=== PATIENT | male | born 1930 | race Caucasian/White ===

== ENCOUNTER 2017-11-01 15:06 | Inpatient (IN) | payer MEDICARE, OTHER ==
[2017-11-01] MEDS ORDERED: NORMAL SALINE 1000 ML 1,000 ML IV ONE (16:36)
[2017-11-01 16:47] LABS: ABSOLUTE LYMPHOCYTES (AUTO) 0.7 10^3/uL (0.5-4.7); ABSOLUTE MONOCYTES (AUTO) 0.9 10^3/uL (0.1-1.4); ABSOLUTE NEUT (AUTO) 8.3 10^3/uL (1.7-8.2); BASOPHILS % (AUTO) 0.1 % (0-2); HEMATOCRIT 42.3 % (37.9-51.0); HEMOGLOBIN 14.3 g/dL (13.5-17.0); LYMPHOCYTES % (AUTO) 7.1 % (13-45); MEAN CORPUSCULAR HEMOGLOBIN 32.6 pg (27.0-33.4); MEAN CORPUSCULAR HGB CONC 33.9 g/dL (32.0-36.0); MEAN CORPUSCULAR VOLUME 96 fl (80-97); MONOCYTES % (AUTO) 8.7 % (3-13); PLATELET COUNT 207 10^3/uL (150-450); RED BLOOD COUNT 4.39 10^6/uL (4.35-5.55); RED CELL DISTRIBUTION WIDTH 13.5 % (11.5-14.0); SEGMENTED NEUTROPHILS % (AUTO) 84.1 % (42-78); TOTAL CELLS COUNTED % (AUTO) 100 %; WHITE BLOOD COUNT 9.9 10^3/uL (4.0-10.5)
[2017-11-01 16:56] LABS: ALANINE AMINOTRANSFERASE 55 U/L (21-72); ALBUMIN 3.8 g/dL (3.5-5.0); ALKALINE PHOSPHATASE 49 U/L (38-126); ANION GAP 14 (5-19); ASPARTATE AMINO TRANSFERASE 124 U/L (17-59); BILIRUBIN,DIRECT 0.6 mg/dL (0.0-0.4); BILIRUBIN,TOTAL 2.6 mg/dL (0.2-1.3); BLOOD UREA NITROGEN 46 mg/dL (7-20); CALCIUM 9.4 mg/dL (8.4-10.2); CARBON DIOXIDE 27 mmol/L (22-30); CHLORIDE 106 mmol/L (98-107); GLUCOSE 135 mg/dL (75-110); POTASSIUM 4.3 mmol/L (3.6-5.0); SODIUM 147.3 mmol/L (137-145); TOTAL PROTEIN 6.5 g/dL (6.3-8.2)
--- NOTE | 2017-11-01 17:02 | RADIOLOGY REPORT (SQ) ---
EXAM DESCRIPTION: CHEST SINGLE VIEW COMPLETED DATE/TIME: 11/01/2017 4:54 pm REASON FOR STUDY: fall, can't stand, weakness, crackles in lungs COMPARISON: 04/25/2010 EXAM PARAMETERS: NUMBER OF VIEWS: One view. TECHNIQUE: Single frontal radiographic view of the chest acquired. RADIATION DOSE: NA LIMITATIONS: None. FINDINGS: LUNGS AND PLEURA: Parenchymal opacity at the right lung base. Left lung clear. MEDIASTINUM AND HILAR STRUCTURES: No masses. Contour normal. HEART AND VASCULAR STRUCTURES: Heart normal in size. Normal vasculature. BONES: No acute findings. HARDWARE: None in the chest. OTHER: No other significant finding. IMPRESSION: Right basilar pneumonia. TECHNICAL DOCUMENTATION: JOB ID: [id number] [employer]- All Rights Reserved Reading location - IP/workstation name: [email or web address]
[2017-11-01 17:08] LABS: CREATINE KINASE MB 20.9 ng/mL (<4.55)
[2017-11-01 17:09] LABS: TROPONIN I 0.06 ng/mL
--- NOTE | 2017-11-01 17:14 | RADIOLOGY REPORT (SQ) ---
EXAM DESCRIPTION: CT HEAD WITHOUT COMPLETED DATE/TIME: 11/01/2017 5:01 pm REASON FOR STUDY: fall, can;t walk COMPARISON: MR head 04/26/2010 CT head 04/25/2010 TECHNIQUE: Axial images acquired through the brain without intravenous contrast. Images reviewed wi th bone, brain and subdural windows. Additional sagittal and coronal reconstructions were generated. Images stored on PACS. All CT scanners at this facility use dose modulation, iterative reconstruction, and/or weight based d osing when appropriate to reduce radiation dose to as low as reasonably achievable (ALARA). [facility]: Dose Right [facility]: CareDose [facility]: Dose Right [facility]: Teradose 4D [facility]: Mixpo RADIATION DOSE: CT Rad equipment meets quality standard of care and radiation dose reduction techniq ues were employed. CTDIvol: 53.2 mGy. DLP: 991 mGy-cm. mGy. LIMITATIONS: None. FINDINGS: VENTRICLES: Normal size and contour. CEREBRUM: Cortical atrophy. No masses. No hemorrhage. No midline shift. No evidence for acute inf arction. Areas of low density in the white matter most likely chronic small vessel ischemic changes. CEREBELLUM: No masses. No hemorrhage. No alteration of density. No evidence for acute infarction. EXTRAAXIAL SPACES: No fluid collections. No masses. ORBITS AND GLOBE: No intra- or extraconal masses. Normal contour of globe without masses. CALVARIUM: No fracture. PARANASAL SINUSES: No fluid or mucosal thickening. SOFT TISSUES: Dense vertebral basilar atherosclerosis. OTHER: No other significant finding. IMPRESSION: CHRONIC MICROVASCULAR ISCHEMIA. NO ACUTE IMAGING FINDINGS IN THE BRAIN. DENSE VERTEBRAL BASILAR ATHEROSCLEROSIS. EVIDENCE OF ACUTE STROKE: NO. COMMENT: Quality ID # [id number]: Final reports with documentation of one or more dose reduction techniques (e.g., Automated exposure control, adjustment of the mA and/or kV according to patient size, use of iterative reconstruction technique) TECHNICAL DOCUMENTATION: JOB ID: [id number] [employer]- All Rights Reserved Reading location - IP/workstation name: [email or web address]
[2017-11-01 17:15] LABS: CREATINE KINASE 5370 U/L (55-170)
--- NOTE | 2017-11-01 17:55 | ER Document Report ---
ED General - General Chief Complaint: Fall Stated Complaint: FALL Time Seen by Provider: 11/01/17 16:10 Notes: 87-year-old male found down at home, brought in by EMS. Patient apparently fell to the ground on Monday, states he thinks he may have passed out and then has been too weak to get up ever since then. Does not have any focal weakness, states that his entire body is just difficult to move. Complains of pain on his left side where he has been laying but otherwise has no complaints of pain. Denies chest pain, shortness of breath, nausea, vomiting, diarrhea. States he has been urinating frequently. Patient lives by himself, goes for tricycle rides and usually takes care of all his activities daily of daily living himself. Family has noticed that he has been getting weaker and weaker over the past several months and has been having more frequent falls. Patient does usually have somebody who comes and checks on him every day however she apparently had diarrhea over the past 48 hours so has not stopped by the house. When family stopped by today they found him on the ground. TRAVEL OUTSIDE OF THE [place] IN LAST 30 DAYS: No - Related Data Allergies/Adverse Reactions: No Known Allergies Allergy (Verified 11/01/17 15:34) Past Medical History - General Information source: Patient, Relative - Social History Smoking Status: Former Smoker Chew tobacco use (# tins/day): No Frequency of alcohol use: None Drug Abuse: None Lives with: Alone Family History: Reviewed & Not Pertinent Patient has suicidal ideation: No Patient has homicidal ideation: No - Past Medical History Cardiac Medical History: Reports: Hx Hypercholesterolemia Renal/ Medical History: Denies: Hx Peritoneal Dialysis Past Surgical History: Reports: Hx Abdominal Surgery, Hx Oral Surgery, Hx Vascular Surgery Review of Systems - Review of Systems Constitutional: See HPI, Weakness EENT: No symptoms reported Cardiovascular: See HPI, Syncope Respiratory: No symptoms reported Gastrointestinal: No symptoms reported Musculoskeletal: See HPI - Generalized weakness, no focal weakness. Skin: See HPI -: Yes All other systems reviewed and negative Physical Exam - Vital signs Vitals: Resp BP 14 111/88 H 11/01/17 09:49 11/01/17 09:49 Interpretation: Tachycardic, Hypoxic - Notes Notes: GENERAL: Awake, appears tired but does respond relatively promptly. No acute distress. Cachectic HEAD: Normocephalic, atraumatic EYES: Pupils equal, round and reactive to light, extraocular movements intact. ENT: Oral mucosa moist, tongue midline. NECK: Full range of motion, supple, trachea midline. LUNGS: Hypoxic, crackles at the bilateral lung bases, no wheezes. HEART: Regular rate and rhythm, no murmurs, gallops, rubs. ABDOMEN: Soft, nontender, nondistended, bowel sounds present in all 4 quadrants. EXTREMITIES: Moves all 4 extremities spontaneously, no edema, radial and dorsalis pedis pulses 2/4 bilaterally. No cyanosis. NEUROLOGICAL: Alert and oriented x3, normal speech, no facial droop, biceps and patellar DTRs 2+ bilaterally. PSYCH: Normal mood, normal affect. SKIN: Warm and dry, skin breakdown is noted medially on the right knee, laterally on the left knee, along the left greater trochanter, left arm and elbow, some skin breakdown is noted along the bony prominences of the back as well. This is all consistent with immobility for the past 48 hours. Course - Re-evaluation Re-evalutation: 11/01/17 17:55 Patient appears much better than expected after laying on the floor in his house for 48 hours. CBC grossly unremarkable, CMP shows a bumped creatinine at 46, GFR is normal at 0.87, GFR creatinine is normal at 0.87, GFR surprisingly normal at greater than 60, lactic acid normal, total and direct bilirubin are both bumped at 2.6 and 0.6 respectively, CK elevated at 5370, CK-MB elevated at 20.9, troponin indeterminate 0.060. Chest x-ray shows right basilar pneumonia, head CT shows chronic microvascular ischemia, no other acute findings in the brain. Urinalysis is pending however the urine was quite dark. Patient is currently being treated with fluids for rhabdomyolysis as well as with Rocephin and azithromycin for his pneumonia. Patient is being hydrated. Patient was discussed with Dr. Vo from the hospitalist service and will be admitted. - Vital Signs Vital signs: Temp Pulse Resp BP Pulse Ox 97.8 F 95 20 116/81 89 L 11/01/17 15:13 11/01/17 15:13 11/01/17 15:13 11/01/17 16:25 11/01/17 17:30 - Laboratory Result Diagrams: 11/01/17 16:05 11/01/17 16:05 Laboratory results interpreted by me: 11/01/17 11/01/17 11/01/17 16:05 16:05 16:05 Seg Neutrophils % 84.1 H Lymphocytes % 7.1 L Absolute Neutrophils 8.3 H Sodium 147.3 H BUN 46 H Glucose 135 H Total Bilirubin 2.6 H Direct Bilirubin 0.6 H AST 124 H Creatine Kinase 5370 H CK-MB (CK-2) 20.90 H - EKG Interpretation by Me Additional EKG results interpreted by me: 11/01/17 17:55 EKG shows sinus tachycardia at a rate of 112, first-degree AV block, left anterior hemiblock, ST segment depressions in V3, no ST segment elevations per my interpretation. Discharge - Discharge Clinical Impression: Fall at home Qualifiers: Encounter type: initial encounter Qualified Code(s): W19.XXXA - Unspecified fall, initial encounter; Y92.009 - Unspecified place in unspecified non- institutional (private) residence as the place of occurrence of the external cause; Y92.009 - Unspecified place in unspecified non-institutional (private) residence as the place of occurrence of the external cause Rhabdomyolysis Qualifiers: Rhabdomyolysis type: non-traumatic Qualified Code(s): M62.82 - Rhabdomyolysis Right lower lobe pneumonia Qualifiers: Pneumonia type: due to unspecified organism Qualified Code(s): J18.1 - Lobar pneumonia, unspecified organism Condition: Fair Disposition: ADMITTED INPATIENT Admitting Provider: [facility] Unit Admitted: Telemetry Referrals: KEVIN LE MD [Primary Care Provider] - Follow up as needed
[2017-11-01 17:59] LABS: APPEARANCE,URINE SLIGHTLY-CLOUDY; BILIRUBIN,URINE NEGATIVE (NEGATIVE); GLUCOSE, URINE NEGATIVE (NEGATIVE); KETONES,URINE TRACE mg/dL (NEGATIVE); LEUKOCYTE ESTERASE,URINE NEGATIVE (NEGATIVE); NITRITE,URINE NEGATIVE (NEGATIVE); PROTEIN,URINE 100 mg/dL (NEGATIVE); URINE SPECIFIC GRAVITY 1.027
[2017-11-01] MEDS ORDERED: AZITHROMYCIN 500 MG in DEXTROSE 5%-WATER 250 ML IV SCH (18:00)
[2017-11-01 18:06] LABS: COLOR,URINE YELLOW
--- NOTE | 2017-11-01 18:27 | PDOC H&P ---
History of Present Illness Admission Date/PCP: KEVIN LE MD History of Present Illness: JAIME JOHNSTON is a 87 year old male who was brought into the hospital after being found down on the floor for an extended period of time. Apparently he lives by himself and does most of his own ADLs, but his family has noticed that over the last few months that he has been getting progressively weaker, and so they made an arrangement to have somebody come by and check on him and help him out during part of the day. Apparently that person has been sick for the last couple days and has not been able to come by., From the family came by to check on the patient today and found him in the floor. The last time he was known to have been in his usual state of health was about 3 days ago, so he could have fallen anytime between then and the time he was found, but he had apparently been down for some time because he was noted to have some pressure abrasions on his left side. Apparently he was too weak to get up from the floor and was unable to get to a telephone call for help. Apparently he is usually in pretty good health because he does not have any home medications listed. He said he does not have any medical problems. He denies any fevers or chills, chest pain or shortness of breath, nausea vomiting or diarrhea. He has a little bit of a tremor in his right hand which he says is chronic. He does not remember any of the details of when he fell. He just said that the next thing he knew he was in the floor and he could not get to a telephone. Past Medical History Cardiac Medical History: Reports: Hyperlipidema Past Surgical History Past Surgical History: Reports: Vascular Surgery Social History Information Source: Patient Lives with: Alone Smoking Status: Former Smoker Frequency of Alcohol Use: Rare Hx Recreational Drug Use: No Drugs: None Hx Prescription Drug Abuse: No Family History Family History: Reviewed & Not Pertinent Parental Family History Reviewed: Yes - Noncontributory Children Family History Reviewed: Yes - Noncontributory Sibling(s) Family History Reviewed.: Yes - Noncontributory Medication/Allergy Allergies/Adverse Reactions: No Known Allergies Allergy (Verified 11/01/17 15:34) Review of Systems All systems: reviewed and no additional remarkable complaints except as stated - 10 point review of systems was conducted with the patient was negative except as noted above in HPI Physical Exam Vital Signs: Temp Pulse Resp BP Pulse Ox 97.6 F 95 25 H 116/81 89 L 11/01/17 17:58 11/01/17 15:13 11/01/17 17:12 11/01/17 16:25 11/01/17 17:30 Intake & Output 10/31/17 11/01/17 11/02/17 06:59 06:59 06:59 Intake Total 1500 Output Total 200 Balance 1300 Weight 71.7 kg General appearance: PRESENT: no acute distress, cooperative, disheveled, thin Head exam: PRESENT: atraumatic, normocephalic Eye exam: PRESENT: conjunctiva pink, EOMI, PERRLA. ABSENT: periorbital swelling , scleral icterus Ear exam: PRESENT: normal external ear exam Mouth exam: PRESENT: dry mucosa, neck supple, tongue midline Throat exam: ABSENT: post pharyngeal erythema, tonsillar erythema, tonsillar exudate, tonsillogmegaly Neck exam: ABSENT: carotid bruit, JVD, lymphadenopathy, tenderness, thyromegaly Respiratory exam: PRESENT: clear to auscultation hua. ABSENT: rales, rhonchi, wheezes Cardiovascular exam: PRESENT: RRR. ABSENT: diastolic murmur, rubs, systolic murmur Pulses: PRESENT: normal carotid pulses, normal radial pulses, normal femoral pulses Vascular exam: PRESENT: normal capillary refill GI/Abdominal exam: PRESENT: normal bowel sounds, soft. ABSENT: distended, guarding, mass, organolmegaly, rebound, tenderness Rectal exam: PRESENT: deferred Extremities exam: PRESENT: full ROM. ABSENT: clubbing, pedal edema Musculoskeletal exam: PRESENT: normal inspection, other - He is very thin and his rib bones are easily visible on his anterior chest. ABSENT: deformity Neurological exam: PRESENT: alert, awake, oriented to person, oriented to place , oriented to time, oriented to situation, CN II-XII grossly intact Psychiatric exam: PRESENT: appropriate affect, normal mood Skin exam: PRESENT: abrasion - He has worn a pressure point on the lateral aspect of his left knee as well as on his left shoulder, dry - He has a very dry and scaly skin on his lower extremities below the knees bilaterally, other - He has diffuse ecchymoses on his upper and lower extremities Results Laboratory Results: 11/01/17 16:05 11/01/17 16:05 11/01/17 11/01/17 11/01/17 16:05 16:05 16:05 WBC 9.9 RBC 4.39 Hgb 14.3 Hct 42.3 MCV 96 MCH 32.6 MCHC 33.9 RDW 13.5 Plt Count 207 Seg Neutrophils % 84.1 H Lymphocytes % 7.1 L Monocytes % 8.7 Eosinophils % 0.0 Basophils % 0.1 Absolute Neutrophils 8.3 H Absolute Lymphocytes 0.7 Absolute Monocytes 0.9 Absolute Eosinophils 0.0 Absolute Basophils 0.0 Sodium 147.3 H Potassium 4.3 Chloride 106 Carbon Dioxide 27 Anion Gap 14 BUN 46 H Creatinine 0.87 Est GFR ( Amer) > 60 Est GFR (Non-Af Amer) > 60 Glucose 135 H Lactic Acid 1.4 Calcium 9.4 Total Bilirubin 2.6 H AST 124 H ALT 55 Alkaline Phosphatase 49 Total Protein 6.5 Albumin 3.8 Urine Color Urine Appearance Urine pH Ur Specific [place] Urine Protein Urine Glucose (UA) Urine Ketones Urine Blood Urine Nitrite Ur Leukocyte Esterase Urine WBC (Auto) Urine RBC (Auto) 11/01/17 17:10 WBC RBC Hgb Hct MCV MCH MCHC RDW Plt Count Seg Neutrophils % Lymphocytes % Monocytes % Eosinophils % Basophils % Absolute Neutrophils Absolute Lymphocytes Absolute Monocytes Absolute Eosinophils Absolute Basophils Sodium Potassium Chloride Carbon Dioxide Anion Gap BUN Creatinine Est GFR ( Amer) Est GFR (Non-Af Amer) Glucose Lactic Acid Calcium Total Bilirubin AST ALT Alkaline Phosphatase Total Protein Albumin Urine Color YELLOW Urine Appearance SLIGHTLY-CLOUDY Urine pH 5.0 Ur Specific [place] 1.027 Urine Protein 100 H Urine Glucose (UA) NEGATIVE Urine Ketones TRACE H Urine Blood LARGE H Urine Nitrite NEGATIVE Ur Leukocyte Esterase NEGATIVE Urine WBC (Auto) 3 Urine RBC (Auto) 14 11/01/17 11/01/17 16:05 16:05 Creatine Kinase 5370 H CK-MB (CK-2) 20.90 H Troponin I 0.060 Impressions: Chest X-Ray 11/01/17 16:36 IMPRESSION: Right basilar pneumonia. Head CT 11/01/17 16:37 IMPRESSION: CHRONIC MICROVASCULAR ISCHEMIA. NO ACUTE IMAGING FINDINGS IN THE BRAIN. DENSE VERTEBRAL BASILAR ATHEROSCLEROSIS. EVIDENCE OF ACUTE STROKE: NO. Assessment & Plan - Diagnosis (1) Rhabdomyolysis Qualifiers: Rhabdomyolysis type: non-traumatic Qualified Code(s): M62.82 - Rhabdomyolysis Is this a current diagnosis for this admission?: Yes Plan: We will give him some IV fluids. We will keep an eye on his renal function, which is currently very good. Will repeat the trend on his CPK to make sure his enzymes are trending down. (2) Fall at home Qualifiers: Encounter type: initial encounter Qualified Code(s): W19.XXXA - Unspecified fall, initial encounter; Y92.009 - Unspecified place in unspecified non-institutional (private) residence as the place of occurrence of the external cause; Y92.009 - Unspecified place in unspecified non-institutional ( private) residence as the place of occurrence of the external cause Is this a current diagnosis for this admission?: Yes Plan: Once we get him tuned up a little bit, will have physical therapy come to evaluate him. (3) Right lower lobe pneumonia Qualifiers: Pneumonia type: due to unspecified organism Qualified Code(s): J18.1 - Lobar pneumonia, unspecified organism Is this a current diagnosis for this admission?: Yes Plan: I suspect this is due to aspiration. We do not know all the details of his downtime, and he does not remember any of the details of his fall. We will cover him with Zosyn empirically. He does not show any signs of any infection externally, but blood cultures have been drawn regardless. - Time Time Spent: 50 to 70 Minutes Medications reviewed and adjusted accordingly: Yes
[2017-11-01] MEDS: RINGERS SOLUTION,LACTATED 1,000 ML IV PRN (18:34)
[2017-11-01] MEDS: CEFTRIAXONE 1 GM/D5W RTU 1 GM/50 ML RTUPB IV SCH ×2 (18:38→19:36)
[2017-11-01] MEDS ORDERED: AZITHROMYCIN 500 MG in DEXTROSE 5%-WATER 250 ML IV PRN (19:30)
[2017-11-01] MEDS ORDERED: FLUTICASONE NASAL SPRAY 50 MCG/SPRY 120 SPRAY/16 GM NASL ONE (20:52)
[2017-11-01] MEDS ORDERED: GLUCAGON,HUMAN RECOMB 1 MG INJ SUBCUT PRN (21:02)
[2017-11-01] MEDS ORDERED: DEXTROSE 40% GEL 15 GM TUBE PO PRN ×2 (21:02)
[2017-11-01] MEDS ORDERED: DEXTROSE 50%-WATER 25 GM/50 ML DISP.SYRIN IV PRN ×2 (21:02)
[2017-11-01] MEDS: PIPERACILLIN SODIUM/TAZOBACTAM 3.375 GM in NORMAL SALINE 100 ML IV SCH (22:52)
[2017-11-02] MEDS: ACETAMINOPHEN 325 MG TABLET PO PRN (00:25)
[2017-11-02 05:16] LABS: HEMATOCRIT 38.5 % (37.9-51.0); HEMOGLOBIN 13.1 g/dL (13.5-17.0); MEAN CORPUSCULAR HEMOGLOBIN 32.8 pg (27.0-33.4); MEAN CORPUSCULAR VOLUME 96 fl (80-97); PLATELET COUNT 168 10^3/uL (150-450); RED BLOOD COUNT 3.99 10^6/uL (4.35-5.55)
[2017-11-02 05:37] LABS: ANION GAP 11 (5-19); BLOOD UREA NITROGEN 47 mg/dL (7-20); CALCIUM 8.7 mg/dL (8.4-10.2); CARBON DIOXIDE 28 mmol/L (22-30); CHLORIDE 109 mmol/L (98-107); GLUCOSE 143 mg/dL (75-110); POTASSIUM 4.2 mmol/L (3.6-5.0); SODIUM 147.9 mmol/L (137-145)
[2017-11-02 05:44] LABS: CREATINE KINASE 2865 U/L (55-170)
[2017-11-02] MEDS: PIPERACILLIN SODIUM/TAZOBACTAM 3.375 GM in NORMAL SALINE 100 ML IV SCH ×3 (06:12→18:24)
[2017-11-02] MEDS: RINGERS SOLUTION,LACTATED 1,000 ML IV PRN ×2 (06:12→18:25)
--- NOTE | 2017-11-02 07:41 | EKG REPORT ---
SEVERITY:- ABNORMAL ECG - SINUS TACHYCARDIA FIRST DEGREE AV BLOCK RAA, CONSIDER BIATRIAL ABNORMALITIES RBBB AND LAFB LEFT VENTRICULAR HYPERTROPHY : Confirmed by: Estella Graham MD 02-Nov-2017 07:39:51
--- NOTE | 2017-11-02 09:03 | RADIOLOGY REPORT (SQ) ---
EXAM DESCRIPTION: CHEST SINGLE VIEW COMPLETED DATE/TIME: 11/02/2017 8:40 am REASON FOR STUDY: aspiration, hypoxemia COMPARISON: 06/11/2009, 04/25/2010, 11/01/2017 chest films EXAM PARAMETERS: NUMBER OF VIEWS: One view. TECHNIQUE: Single frontal radiographic view of the chest acquired. RADIATION DOSE: NA LIMITATIONS: None. FINDINGS: LUNGS AND PLEURA: Patchy airspace disease is present in the right medial lung base worriso me for pneumonia. This similar compared to 11/01/2017. Left lung clear. No pleural effusions. No pneumothorax. MEDIASTINUM AND HILAR STRUCTURES: No masses. Contour normal. HEART AND VASCULAR STRUCTURES: Heart normal in size. Normal vasculature. BONES: No acute findings. HARDWARE: None in the chest. OTHER: No other significant finding. IMPRESSION: Patchy right lower lobe airspace disease unchanged from 11/01/2017 TECHNICAL DOCUMENTATION: JOB ID: [id number] [employer]- All Rights Reserved Reading location - IP/workstation name: [email or web address]
[2017-11-02] MEDS: ENOXAPARIN SODIUM INJ 40 MG/0.4 ML DISP.SYRIN SUBCUT SCH (10:24)
[2017-11-02] MEDS: AZITHROMYCIN 500 MG in DEXTROSE 5%-WATER 250 ML IV SCH (11:10)
--- NOTE | 2017-11-02 17:43 | PDOC PROGRESS REPORT ---
Subjective Progress Note for:: 11/02/17 Subjective:: No adverse events overnight. He apparently had some trouble with thin liquids yesterday, and this morning he had some trouble with thin liquids during his swallow evaluation. He was making gurgling breath sounds whenever I saw him and I got him to take a couple of big deep breaths with a strong cough and he was able to clear up copious amounts of secretions and his breath sounds improved. Later on while I was talking to him he began make the same gurgling breath sounds we got him to cough again to clear up some more bloody secretions. He has been afebrile. He was able to walk with walker for short distance, but he needed assistance with his transfers. Reason For Visit: RHABDOMYOLYSIS,DEHYDRATION,FALLWITH PROLONGED DOWN Physical Exam Vital Signs: Temp Pulse Resp BP Pulse Ox 98.0 F 88 20 113/73 95 11/02/17 15:42 11/02/17 15:42 11/02/17 15:42 11/02/17 15:42 11/02/17 15:42 Intake & Output 11/01/17 11/02/17 11/03/17 06:59 06:59 06:59 Intake Total 900 236 Output Total 350 Balance 550 236 Weight 76.7 kg General appearance: PRESENT: no acute distress, thin, well-developed Respiratory exam: PRESENT: rhonchi - Centrally, unlabored. ABSENT: rales, tachypnea, wheezes Cardiovascular exam: PRESENT: RRR. ABSENT: diastolic murmur, rubs, systolic murmur Vascular exam: PRESENT: normal capillary refill GI/Abdominal exam: PRESENT: normal bowel sounds, soft. ABSENT: distended, guarding, mass, organolmegaly, rebound, tenderness Extremities exam: ABSENT: clubbing, pedal edema Musculoskeletal exam: PRESENT: normal inspection. ABSENT: deformity Neurological exam: PRESENT: alert, oriented to person, oriented to place, oriented to time Skin exam: PRESENT: dry, warm, other - Had ecchymoses on his upper and lower extremities with a couple of excoriated places, one on his left lateral knee and one on his left shoulder Results Laboratory Results: 11/02/17 04:09 11/02/17 04:09 11/02/17 11/02/17 04:09 04:09 WBC 8.0 RBC 3.99 L Hgb 13.1 L Hct 38.5 MCV 96 MCH 32.8 MCHC 34.0 RDW 14.0 Plt Count 168 Sodium 147.9 H Potassium 4.2 Chloride 109 H Carbon Dioxide 28 Anion Gap 11 BUN 47 H Creatinine 1.05 Est GFR ( Amer) > 60 Est GFR (Non-Af Amer) > 60 Glucose 143 H Calcium 8.7 11/02/17 04:09 Creatine Kinase 2865 H Impressions: Head CT 11/01/17 16:37 IMPRESSION: CHRONIC MICROVASCULAR ISCHEMIA. NO ACUTE IMAGING FINDINGS IN THE BRAIN. DENSE VERTEBRAL BASILAR ATHEROSCLEROSIS. EVIDENCE OF ACUTE STROKE: NO. Chest X-Ray 11/02/17 00:00 IMPRESSION: Patchy right lower lobe airspace disease unchanged from 11/01/2017 Assessment & Plan - Diagnosis (1) Rhabdomyolysis Qualifiers: Rhabdomyolysis type: non-traumatic Qualified Code(s): M62.82 - Rhabdomyolysis Is this a current diagnosis for this admission?: Yes Plan: Improving with IV fluids (2) Fall at home Qualifiers: Encounter type: initial encounter Qualified Code(s): W19.XXXA - Unspecified fall, initial encounter; Y92.009 - Unspecified place in unspecified non-institutional (private) residence as the place of occurrence of the external cause; Y92.009 - Unspecified place in unspecified non-institutional ( private) residence as the place of occurrence of the external cause Is this a current diagnosis for this admission?: Yes Plan: I got to speak with his family, they are in agreement that he would probably benefit from a stay in a nursing home facility, if not long-term placement. (3) Right lower lobe pneumonia Qualifiers: Pneumonia type: due to unspecified organism Qualified Code(s): J18.1 - Lobar pneumonia, unspecified organism Is this a current diagnosis for this admission?: Yes Plan: Likely due to aspiration. He is on Zosyn. A modified barium swallow study is scheduled for tomorrow. - Time Time Spent with patient: 25-34 minutes Medications reviewed and adjusted accordingly: Yes Anticipated discharge: SNF
[2017-11-03] MEDS: PIPERACILLIN SODIUM/TAZOBACTAM 3.375 GM in NORMAL SALINE 100 ML IV SCH ×5 (00:37→23:19)
[2017-11-03 06:33] LABS: HEMATOCRIT 34.4 % (37.9-51.0); HEMOGLOBIN 11.6 g/dL (13.5-17.0); MEAN CORPUSCULAR HGB CONC 33.8 g/dL (32.0-36.0); MEAN CORPUSCULAR VOLUME 97 fl (80-97); PLATELET COUNT 162 10^3/uL (150-450); RED BLOOD COUNT 3.53 10^6/uL (4.35-5.55); WHITE BLOOD COUNT 9.8 10^3/uL (4.0-10.5)
[2017-11-03 06:48] LABS: ANION GAP 9 (5-19); BLOOD UREA NITROGEN 37 mg/dL (7-20); CALCIUM 8.8 mg/dL (8.4-10.2); CARBON DIOXIDE 29 mmol/L (22-30); CHLORIDE 109 mmol/L (98-107); CREATINE KINASE 980 U/L (55-170); GLUCOSE 109 mg/dL (75-110)
[2017-11-03 06:49] LABS: POTASSIUM 3.8 mmol/L (3.6-5.0)
--- NOTE | 2017-11-03 08:41 | ST Modified Barium Swallow ---
Recommendation - Recommendations Recommendations: Recommend NPO. Consider alternate means of nutrition. Medical Diagnoses - Medical Diagnoses Medical Diagnosis Description & ICD-10 Code(s): Rhabdomyolysis, dysphagia ( R13.10) Other Medical Diagnoses/Co-Morbidities: hyperlipidemia ST Modified Barium Swallow - General Date: 11/03/17 Risks/Precautions: Aspiration Date of Onset: 11/01/17 Reason for Referral: Signs of aspiration - History History obtained from: Patient -: Medical Allergies: No known allergies - Functional Status Prior Functional Status: INDEPENDENT: ADL - at home with assist, community mobility, communication, feeding, leisure/play, other - Subjective Patient/caregiver goal(s): safe swallow, r/o aspiration Cognitive-Linguistic Function: Functional - did not consistently follow 1-step directions Speech Intelligibility: Reduced intelligibility - reduced intensity and wet vocal quality, but largely intelligible Current Nutritional Means: PO Current PO diet: Mechanical- ground, Thickened liquids - nectar thick liquids Current symptoms: Coughing, Wet/gurgly voice, Pneumonia Pain: Patient reports, 1/5 - mild headache - Objective Assessment: Left Lateral - Food Trials Used Food trials used: Thin liquids, [place] thick liquids, Pureed The patient: Was Able to Self Feed - Oral-Motor Skills Dentition: Partial Laryngeal Function: Weak Cough - Assessment Oral prep: Adeq, for consist. tested Labial closure: Adequate Leakage: None Mastication: no chewing observed Lingual Movement: Normal Oral stage: Age appropriate - Pharyngeal Stage Initiation of Pharyngeal Stage Reflex: Delayed Decreased laryngeal elevation: Yes Reduced Velopharyngeal Closure: no Reduced pressure generation: Yes reduced tongue-based retraction: Yes Pre-swallow pooling in valleculae: Mild Pre-Swallow pooling in pyriforms: Mild Reduced Thyro-Hyoid approximation: Yes Reduced epiglottic excursion: Yes Multiple Swallows with: Ineffective Clearance Post-swallow residulas vallecular: Significant Post-Swallow residuals in pyriforms: Significant Post-Swallow Residuals: throughout pharynx Reduced Cricopharyngeal opening: Yes - Fall Risk Assessment Medications/Conditions that increase fall risks include: Antidepressants, sedatives, anti-arrhythmic, diuretic, benzodiazipenes, neuroleptics. BP regulation problems, cardiac problems, balance or gait deficits, neurological problems. Is patient considered at risk for falls: yes Fall Risk Actions Taken: No action needed - Behavioral Observations During evaluation process patient: was pleasant, was cooperative, able to answer questions, provided medical history - Treatment / Educational Needs: Treatment/Education Needs: Treatment consisted of patient education on the role of the Speech Pathologist. Patient's plan of care and golas were communicated as well as scheduling and attendance policies. Recommendations for initial home program were shared. Patient demonstrated understanding and verbalized agreement. - Impression/Summary Laryngeal Penetration: Yes Consistency: Thin, Honey, Pudding Tracheal Aspiration: yes, silent - on all consistencies trialed. Required cues to cough, but did not clear bolus from airway., during swallow, after swallow Productive cough: No Effective Clearing: no Patient presents with: Pharyngeal stage dysph., Profound Risk of Aspiration: Severe Risk of nutritional compromise: Severe - Recommend consideration of alternate means of nutrition Risk due to: Silent aspiration of thin liquid, nectar thick liquid, and pudding. - Recommendations NPO: yes Strict aspiration precautions: Yes Pt/Family education and followup with MD: Yes - Called MD and RN to discuss results and recommendation for NPO Dysphagia therapy with GENERAL ASSEMBLER INSTALLER: yes Information, Precautions and Recommendations: Patient (Verbal) - Time Total Time: 15 - Green Chain Worker Goals Retirement Goals: #1 - Patient will drink 4 oz. of thin liquid with no overt signs/symptoms of aspiration. - Short Term Goals Short Term Goals: #1 - Patient will accept ice chip trials without overt signs/ symptoms of aspiration in 4/5 trials. - Plan of Care Patient to follow-up with referring physician: Yes Rehab potential for established goals: [place] a week: 3x/week POC Procedures/Codes: therapeutic trials, pharyngeal exercises, laryngeal exercises, pt/family education, behavioral/dietary mod, MBSS (20328) Strategies to optimize patient understanding include:: ongoing assessment of educational needs, implementation of educational strategies, and re-education. - - -: Thank you for the opportunity to work with this patient and his/her family. Should you have any questions about this patient's plan or progress, I can be reached at [phone]. Charge G Code? - - -: Yes ST F.L. Impairment Category - Rationale Based On Rationale Based On: All - Swallowing Current G8996: CN 100% Impaired Goal G8997: CL 60-79% Impaired
[2017-11-03] MEDS: RINGERS SOLUTION,LACTATED 1,000 ML IV PRN ×2 (10:47→23:20)
[2017-11-03] MEDS ORDERED: KETOROLAC TROMETHAMINE INJ/PF 30 MG/1 ML SDV IV ONE (11:30)
[2017-11-03] MEDS: AZITHROMYCIN 500 MG in DEXTROSE 5%-WATER 250 ML IV SCH (11:42)
[2017-11-03] MEDS: ENOXAPARIN SODIUM INJ 40 MG/0.4 ML DISP.SYRIN SUBCUT SCH (11:44)
--- NOTE | 2017-11-03 11:49 | RADIOLOGY REPORT (SQ) ---
EXAM DESCRIPTION: MICHELLE SWALLOW COMPLETED DATE/TIME: 11/03/2017 8:31 am REASON FOR STUDY: SIGNS OF ASPIRATION rhabdomyolysis, right lower lobe pneumonia, COMPARISON: None. TECHNIQUE: Videofluoroscopic swallowing examination was performed in conjunction with speech patholo gy. Videofluoroscopic imaging was obtained and reviewed and these are the findings: RADIATION DOSE: 1 minutes 12 seconds of fluoroscopy was used. 1 images saved to PACS. LIMITATIONS: None FINDINGS: The patient was brought into the fluoro room and placed upright on a modified barium swall ow chair. The patient was then given multiple consistencies mixed with barium to swallow under live fluoroscopic video guidance. According to the Speech Pathologist there was laryngeal penetration and aspiration with all consistencies. There is aspiration of post swallow residuals from the Piriforms . IMPRESSION: LARYNGEAL PENETRATION AND ASPIRATION OF ALL CONSISTENCIES.PLEASE SEE SPEECH PATHOLOGIST REPORT FOR OTHER FINDINGS AND RECOMMENDATIONS. COMMENT: Quality ID 145: Final reports for procedures using fluoroscopy that document radiation exp osure indices, or exposure time and number of fluorographic images (if radiation exposure indices are not available) TECHNICAL DOCUMENTATION: JOB ID: [id number] [employer]- All Rights Reserved Reading location - IP/workstation name: [email or web address]
--- NOTE | 2017-11-03 14:46 | RADIOLOGY REPORT (SQ) ---
EXAM DESCRIPTION: INTRO/GI TUBE W/FLUORO; INTRO LONG GI TUBE (MILLAB) COMPLETED DATE/TIME: 11/03/2017 2:28 pm REASON FOR STUDY: dysphagia, DOBHOFF INSERTION FOR NUTRITION; DYSPHAGIA, DOBHOFF INSERTION COMPARISON: None. TECHNIQUE: Live fluoroscopic guidance. RADIATION DOSE: 2 minutes 16 seconds of fluoroscopy was used. 1 images saved to PACS. LIMITATIONS: None. FINDINGS: The patient was brought to the fluoroscopy room and placed supine on the fluoroscopy table . A NJ-tube was advanced through the left nostril through the stomach and ending in the 3rd portion o f the duodenum. Approximately 20 mL of non ionic contrast was injected through the catheter to confi rm placement. A fluoroscopic spot film was saved to PACs demonstrating catheter tip within the 3rd po rtion of the duodenum. IMPRESSION: Successful fluoroscopic guided placement of a Dobhoff tube. COMMENT: Quality ID 145: Final reports for procedures using fluoroscopy that document radiation exp osure indices, or exposure time and number of fluorographic images (if radiation exposure indices are not available) TECHNICAL DOCUMENTATION: JOBD ID: [id number] [employer]- All Rights Reserved Reading location - IP/workstation name: [email or web address]
--- NOTE | 2017-11-03 14:46 | RADIOLOGY REPORT (SQ) ---
EXAM DESCRIPTION: INTRO/GI TUBE W/FLUORO; INTRO LONG GI TUBE (MILLAB) COMPLETED DATE/TIME: 11/03/2017 2:28 pm REASON FOR STUDY: dysphagia, DOBHOFF INSERTION FOR NUTRITION; DYSPHAGIA, DOBHOFF INSERTION COMPARISON: None. TECHNIQUE: Live fluoroscopic guidance. RADIATION DOSE: 2 minutes 16 seconds of fluoroscopy was used. 1 images saved to PACS. LIMITATIONS: None. FINDINGS: The patient was brought to the fluoroscopy room and placed supine on the fluoroscopy table . A NJ-tube was advanced through the left nostril through the stomach and ending in the 3rd portion o f the duodenum. Approximately 20 mL of non ionic contrast was injected through the catheter to confi rm placement. A fluoroscopic spot film was saved to PACs demonstrating catheter tip within the 3rd po rtion of the duodenum. IMPRESSION: Successful fluoroscopic guided placement of a Dobhoff tube. COMMENT: Quality ID 145: Final reports for procedures using fluoroscopy that document radiation exp osure indices, or exposure time and number of fluorographic images (if radiation exposure indices are not available) TECHNICAL DOCUMENTATION: JOBD ID: [id number] [employer]- All Rights Reserved Reading location - IP/workstation name: [email or web address]
--- NOTE | 2017-11-03 15:25 | RADIOLOGY REPORT (SQ) ---
EXAM DESCRIPTION: MRI HEAD WITHOUT COMPLETED DATE/TIME: 11/03/2017 2:53 pm REASON FOR STUDY: dysphagia COMPARISON: 04/26/2010 TECHNIQUE: Multiplanar imaging includes non-contrasted T1, T2, FLAIR, and diffusion with ADC map seq uences. Images stored on PACS. LIMITATIONS: None. FINDINGS: ANATOMY: No anomalies. Normal vascular flow voids. Pituitary fossa normal. CSF SPACES: CSF spaces are prominent. CEREBRUM: Cortical atrophy is present. There are areas of increased white matter signal in the periv entricular regions on FLAIR imaging. No evidence of hemorrhage, mass, or extraaxial fluid collection . POSTERIOR FOSSA: No signal alteration. No hemorrhage. No edema, masses or mass effect. Internal heather tory canals, cerebello-pontine angles, mastoids normal. DIFFUSION IMAGING: Negative for acute or sub-acute infarction. ORBITS: No masses. Globes normal. PARANASAL SINUSES: No fluid levels. Mucosa normal. OTHER: No other significant finding. IMPRESSION: Involutional changes of aging with chronic microvascular ischemia and no acute intracran ial imaging findings. EVIDENCE OF ACUTE STROKE: No TECHNICAL DOCUMENTATION: JOB ID: [id number] [employer]- All Rights Reserved Reading location - IP/workstation name: [email or web address]
--- NOTE | 2017-11-03 16:48 | PDOC PROGRESS REPORT ---
Subjective Progress Note for:: 11/03/17 Subjective:: He failed his modified barium swallow study this morning. His breathing feels good. He has been afebrile. He still coughing up some phlegm. Reason For Visit: RHABDOMYOLYSIS,DEHYDRATION,FALLWITH PROLONGED DOWN Physical Exam Vital Signs: Temp Pulse Resp BP Pulse Ox 98.0 F 63 20 140/63 H 100 11/03/17 11:05 11/03/17 11:05 11/03/17 11:05 11/03/17 11:05 11/03/17 16:16 Intake & Output 11/02/17 11/03/17 11/04/17 06:59 06:59 06:59 Intake Total 900 2976 237 Output Total 350 450 Balance 550 2526 237 Weight 76.7 kg 76.1 kg General appearance: PRESENT: no acute distress, thin, well-developed Respiratory exam: PRESENT: rhonchi - Some scant central rhonchi, unlabored. ABSENT: accessory muscle use, rales, wheezes Cardiovascular exam: PRESENT: RRR. ABSENT: diastolic murmur, rubs, systolic murmur Vascular exam: PRESENT: normal capillary refill GI/Abdominal exam: PRESENT: normal bowel sounds, soft. ABSENT: distended, guarding, mass, organolmegaly, rebound, tenderness Extremities exam: ABSENT: clubbing, pedal edema Musculoskeletal exam: PRESENT: normal inspection. ABSENT: deformity Results Laboratory Results: 11/03/17 05:30 11/03/17 05:30 11/03/17 11/03/17 05:30 05:30 WBC 9.8 RBC 3.53 L Hgb 11.6 L Hct 34.4 L MCV 97 MCH 33.0 MCHC 33.8 RDW 14.0 Plt Count 162 Sodium 147.0 H Potassium 3.8 Chloride 109 H Carbon Dioxide 29 Anion Gap 9 BUN 37 H Creatinine 0.89 Est GFR ( Amer) > 60 Est GFR (Non-Af Amer) > 60 Glucose 109 Calcium 8.8 11/02/17 11/03/17 04:09 05:30 Creatine Kinase 2865 H 980 H Impressions: Head CT 11/01/17 16:37 IMPRESSION: CHRONIC MICROVASCULAR ISCHEMIA. NO ACUTE IMAGING FINDINGS IN THE BRAIN. DENSE VERTEBRAL BASILAR ATHEROSCLEROSIS. EVIDENCE OF ACUTE STROKE: NO. Chest X-Ray 11/02/17 00:00 IMPRESSION: Patchy right lower lobe airspace disease unchanged from 11/01/2017 Gastrostomy Tube Placement 11/03/17 00:00 IMPRESSION: Successful fluoroscopic guided placement of a Dobhoff tube. Guidance Fluoroscopy 11/03/17 00:00 IMPRESSION: Successful fluoroscopic guided placement of a Dobhoff tube. Head MRI 11/03/17 00:00 IMPRESSION: Involutional changes of aging with chronic microvascular ischemia and no acute intracranial imaging findings. EVIDENCE OF ACUTE STROKE: No Modified Barium Swallow 11/03/17 00:00 IMPRESSION: LARYNGEAL PENETRATION AND ASPIRATION OF ALL CONSISTENCIES.PLEASE SEE SPEECH PATHOLOGIST REPORT FOR OTHER FINDINGS AND RECOMMENDATIONS. Assessment & Plan - Diagnosis (1) Rhabdomyolysis Qualifiers: Rhabdomyolysis type: non-traumatic Qualified Code(s): M62.82 - Rhabdomyolysis Is this a current diagnosis for this admission?: Yes Plan: Resolved (2) Fall at home Qualifiers: Encounter type: initial encounter Qualified Code(s): W19.XXXA - Unspecified fall, initial encounter; Y92.009 - Unspecified place in unspecified non-institutional (private) residence as the place of occurrence of the external cause; Y92.009 - Unspecified place in unspecified non-institutional ( private) residence as the place of occurrence of the external cause Is this a current diagnosis for this admission?: Yes Plan: I got to speak with his family, they are in agreement that he would probably benefit from a stay in a group home facility, if not long-term placement. (3) Right lower lobe pneumonia Qualifiers: Pneumonia type: aspiration pneumonia Qualified Code(s): J18.1 - Lobar pneumonia, unspecified organism Is this a current diagnosis for this admission?: Yes Plan: Likely due to aspiration. He is on Zosyn. Blood cultures remain negative (4) Dysphagia causing pulmonary aspiration with swallowing Is this a current diagnosis for this admission?: Yes Plan: MRI of the brain was negative for acute stroke. I expect this is likely an acute change for him due to his profound weakness given the fact he was now on the floor for a few days and he has not had anything to eat in a few days either. We are going to place a Dobbhoff tube and get tube feeds started. This will give him some nutrition so that he can participate with speech therapy and physical therapy. - Time Time Spent with patient: 25-34 minutes Medications reviewed and adjusted accordingly: Yes Anticipated discharge: SNF
[2017-11-04] MEDS: PIPERACILLIN SODIUM/TAZOBACTAM 3.375 GM in NORMAL SALINE 100 ML IV SCH ×3 (05:37→17:14)
[2017-11-04 06:20] LABS: HEMOGLOBIN 10.9 g/dL (13.5-17.0); MEAN CORPUSCULAR HEMOGLOBIN 32.8 pg (27.0-33.4); MEAN CORPUSCULAR HGB CONC 33.9 g/dL (32.0-36.0); MEAN CORPUSCULAR VOLUME 97 fl (80-97); PLATELET COUNT 181 10^3/uL (150-450); RED BLOOD COUNT 3.31 10^6/uL (4.35-5.55); RED CELL DISTRIBUTION WIDTH 13.8 % (11.5-14.0)
[2017-11-04 06:44] LABS: ANION GAP 9 (5-19); BLOOD UREA NITROGEN 36 mg/dL (7-20); CALCIUM 8.6 mg/dL (8.4-10.2); CARBON DIOXIDE 31 mmol/L (22-30); CHLORIDE 110 mmol/L (98-107); CREATINE KINASE 515 U/L (55-170); GLUCOSE 113 mg/dL (75-110); POTASSIUM 3.7 mmol/L (3.6-5.0); SODIUM 150.4 mmol/L (137-145)
[2017-11-04] MEDS: 1/2 NORMAL SALINE 1,000 ML IV PRN (09:30)
[2017-11-04] MEDS: ENOXAPARIN SODIUM INJ 40 MG/0.4 ML DISP.SYRIN SUBCUT SCH (09:30)
[2017-11-04] MEDS: AZITHROMYCIN 500 MG in DEXTROSE 5%-WATER 250 ML IV SCH (09:30)
--- NOTE | 2017-11-04 13:59 | PDOC PROGRESS REPORT ---
Subjective Progress Note for:: 11/04/17 Subjective:: No adverse events overnight. No new complaints. He is afebrile. We started his tube feeds yesterday and he has been tolerating them. He is in good spirits. Reason For Visit: RHABDOMYOLYSIS,DEHYDRATION,FALLWITH PROLONGED DOWN Physical Exam Vital Signs: Temp Pulse Resp BP Pulse Ox 97.5 F 71 12 151/73 H 100 11/04/17 11:54 11/04/17 11:54 11/04/17 11:54 11/04/17 11:54 11/04/17 11:54 Intake & Output 11/03/17 11/04/17 11/05/17 06:59 06:59 06:59 Intake Total 2976 1553 Output Total 450 800 Balance 2526 753 Weight 76.1 kg 78.7 kg General appearance: PRESENT: no acute distress, cooperative, thin, well- developed Respiratory exam: PRESENT: rhonchi, unlabored. ABSENT: accessory muscle use, rales, tachypnea, wheezes Cardiovascular exam: PRESENT: RRR. ABSENT: diastolic murmur, rubs, systolic murmur Vascular exam: PRESENT: normal capillary refill GI/Abdominal exam: PRESENT: normal bowel sounds, soft. ABSENT: distended, guarding, mass, organolmegaly, rebound, tenderness Extremities exam: ABSENT: clubbing, pedal edema Musculoskeletal exam: PRESENT: normal inspection. ABSENT: deformity Neurological exam: PRESENT: alert, awake, oriented to person, oriented to place Psychiatric exam: PRESENT: appropriate affect, normal mood Skin exam: PRESENT: dry, warm Results Laboratory Results: 11/04/17 05:08 11/04/17 05:08 11/04/17 11/04/17 05:08 05:08 WBC 10.0 RBC 3.31 L Hgb 10.9 L Hct 32.0 L MCV 97 MCH 32.8 MCHC 33.9 RDW 13.8 Plt Count 181 Sodium 150.4 H Potassium 3.7 Chloride 110 H Carbon Dioxide 31 H Anion Gap 9 BUN 36 H Creatinine 0.91 Est GFR ( Amer) > 60 Est GFR (Non-Af Amer) > 60 Glucose 113 H Calcium 8.6 11/02/17 11/03/17 11/04/17 04:09 05:30 05:08 Creatine Kinase 2865 H 980 H 515 H Impressions: Head CT 11/01/17 16:37 IMPRESSION: CHRONIC MICROVASCULAR ISCHEMIA. NO ACUTE IMAGING FINDINGS IN THE BRAIN. DENSE VERTEBRAL BASILAR ATHEROSCLEROSIS. EVIDENCE OF ACUTE STROKE: NO. Chest X-Ray 11/02/17 00:00 IMPRESSION: Patchy right lower lobe airspace disease unchanged from 11/01/2017 Gastrostomy Tube Placement 11/03/17 00:00 IMPRESSION: Successful fluoroscopic guided placement of a Dobhoff tube. Guidance Fluoroscopy 11/03/17 00:00 IMPRESSION: Successful fluoroscopic guided placement of a Dobhoff tube. Head MRI 11/03/17 00:00 IMPRESSION: Involutional changes of aging with chronic microvascular ischemia and no acute intracranial imaging findings. EVIDENCE OF ACUTE STROKE: No Modified Barium Swallow 11/03/17 00:00 IMPRESSION: LARYNGEAL PENETRATION AND ASPIRATION OF ALL CONSISTENCIES.PLEASE SEE SPEECH PATHOLOGIST REPORT FOR OTHER FINDINGS AND RECOMMENDATIONS. Assessment & Plan - Diagnosis (1) Rhabdomyolysis Qualifiers: Rhabdomyolysis type: non-traumatic Qualified Code(s): M62.82 - Rhabdomyolysis Is this a current diagnosis for this admission?: Yes Plan: Resolved (2) Fall at home Qualifiers: Encounter type: initial encounter Qualified Code(s): W19.XXXA - Unspecified fall, initial encounter; Y92.009 - Unspecified place in unspecified non-institutional (private) residence as the place of occurrence of the external cause; Y92.009 - Unspecified place in unspecified non-institutional ( private) residence as the place of occurrence of the external cause Is this a current diagnosis for this admission?: Yes Plan: I got to speak with his family, they are in agreement that he would probably benefit from a stay in a jail facility, if not long-term placement. (3) Right lower lobe pneumonia Qualifiers: Pneumonia type: aspiration pneumonia Qualified Code(s): J18.1 - Lobar pneumonia, unspecified organism Is this a current diagnosis for this admission?: Yes Plan: Likely due to aspiration. He is on Zosyn. Blood cultures remain negative (4) Dysphagia causing pulmonary aspiration with swallowing Is this a current diagnosis for this admission?: Yes Plan: MRI of the brain was negative for acute stroke. I expect this is likely an acute change for him due to his profound weakness given the fact he was now on the floor for a few days and he has not had anything to eat in a few days either. Started tube feeds through Dobbhoff tube and will try to get him up to his goal rate of 65 mL's an hour today. He is tolerating it well so far. Hopefully this will give him some energy sufficient to strengthen him for physical therapy and speech therapy. - Time Time Spent with patient: 25-34 minutes Medications reviewed and adjusted accordingly: Yes
[2017-11-05] MEDS: 1/2 NORMAL SALINE 1,000 ML IV PRN (01:23)
[2017-11-05] MEDS: PIPERACILLIN SODIUM/TAZOBACTAM 3.375 GM in NORMAL SALINE 100 ML IV SCH ×4 (01:24→17:50)
[2017-11-05] MEDS: AZITHROMYCIN 500 MG in DEXTROSE 5%-WATER 250 ML IV SCH (09:56)
[2017-11-05] MEDS: ENOXAPARIN SODIUM INJ 40 MG/0.4 ML DISP.SYRIN SUBCUT SCH (09:56)
[2017-11-05] MEDS ORDERED: SCOPOLAMINE HYDROBROMIDE 1.5 MG PATCH.TD72 TD ONE (12:30)
--- NOTE | 2017-11-05 17:47 | PDOC PROGRESS REPORT ---
Subjective Progress Note for:: 11/05/17 Subjective:: No adverse events overnight. He said he did not sleep very good and is asking if he can have somewhat light to help him sleep. He is having a lot of oral secretions but he is able to cough them up intermittently. He is up to goal rate on his tube feeds and is tolerating it well. He remains in good spirits. Reason For Visit: RHABDOMYOLYSIS,DEHYDRATION,FALLWITH PROLONGED DOWN Physical Exam Vital Signs: Temp Pulse Resp BP Pulse Ox 98.5 F 73 20 152/75 H 100 11/05/17 15:27 11/05/17 15:27 11/05/17 15:27 11/05/17 15:27 11/05/17 15:27 Intake & Output 11/04/17 11/05/17 11/06/17 06:59 06:59 06:59 Intake Total 1553 3145 620 Output Total 800 900 600 Balance 753 2245 20 Weight 78.7 kg 77.1 kg General appearance: PRESENT: no acute distress, well-developed, well-nourished Respiratory exam: PRESENT: rhonchi, unlabored - Bilateral. ABSENT: rales, wheezes Cardiovascular exam: PRESENT: RRR. ABSENT: diastolic murmur, rubs, systolic murmur Vascular exam: PRESENT: normal capillary refill GI/Abdominal exam: PRESENT: normal bowel sounds, soft. ABSENT: distended, guarding, mass, organolmegaly, rebound, tenderness Extremities exam: ABSENT: clubbing, pedal edema Musculoskeletal exam: PRESENT: normal inspection. ABSENT: deformity Neurological exam: PRESENT: alert, awake, oriented to person, oriented to place , oriented to time Results Laboratory Results: 11/04/17 05:08 11/04/17 05:08 11/02/17 11/03/17 11/04/17 04:09 05:30 05:08 Creatine Kinase 2865 H 980 H 515 H Impressions: Head CT 11/01/17 16:37 IMPRESSION: CHRONIC MICROVASCULAR ISCHEMIA. NO ACUTE IMAGING FINDINGS IN THE BRAIN. DENSE VERTEBRAL BASILAR ATHEROSCLEROSIS. EVIDENCE OF ACUTE STROKE: NO. Chest X-Ray 11/02/17 00:00 IMPRESSION: Patchy right lower lobe airspace disease unchanged from 11/01/2017 Gastrostomy Tube Placement 11/03/17 00:00 IMPRESSION: Successful fluoroscopic guided placement of a Dobhoff tube. Guidance Fluoroscopy 11/03/17 00:00 IMPRESSION: Successful fluoroscopic guided placement of a Dobhoff tube. Head MRI 11/03/17 00:00 IMPRESSION: Involutional changes of aging with chronic microvascular ischemia and no acute intracranial imaging findings. EVIDENCE OF ACUTE STROKE: No Modified Barium Swallow 11/03/17 00:00 IMPRESSION: LARYNGEAL PENETRATION AND ASPIRATION OF ALL CONSISTENCIES.PLEASE SEE SPEECH PATHOLOGIST REPORT FOR OTHER FINDINGS AND RECOMMENDATIONS. Assessment & Plan - Diagnosis (1) Rhabdomyolysis Qualifiers: Rhabdomyolysis type: non-traumatic Qualified Code(s): M62.82 - Rhabdomyolysis Is this a current diagnosis for this admission?: Yes Plan: Resolved (2) Fall at home Qualifiers: Encounter type: initial encounter Qualified Code(s): W19.XXXA - Unspecified fall, initial encounter; Y92.009 - Unspecified place in unspecified non-institutional (private) residence as the place of occurrence of the external cause; Y92.009 - Unspecified place in unspecified non-institutional ( private) residence as the place of occurrence of the external cause Is this a current diagnosis for this admission?: Yes Plan: I got to speak with his family, they are in agreement that he would probably benefit from a stay in a [facility] facility, if not long-term placement. (3) Right lower lobe pneumonia Qualifiers: Pneumonia type: aspiration pneumonia Qualified Code(s): J18.1 - Lobar pneumonia, unspecified organism Is this a current diagnosis for this admission?: Yes Plan: Likely due to aspiration. He is on Zosyn. Blood cultures remain negative (4) Dysphagia causing pulmonary aspiration with swallowing Is this a current diagnosis for this admission?: Yes Plan: MRI of the brain was negative for acute stroke. I expect this is likely an acute change for him due to his profound weakness given the fact he was now on the floor for a few days and he has not had anything to eat in a few days either. Started tube feeds through Dobbhoff tube and will try to get him up to his goal rate of 65 mL's an hour today. He is tolerating it well so far. Hopefully this will give him some energy sufficient to strengthen him for physical therapy and speech therapy. - Time Time Spent with patient: 25-34 minutes Medications reviewed and adjusted accordingly: Yes
[2017-11-05] MEDS: MIRTAZAPINE 15 MG TABLET PO SCH (21:42)
[2017-11-06] MEDS: PIPERACILLIN SODIUM/TAZOBACTAM 3.375 GM in NORMAL SALINE 100 ML IV SCH ×5 (00:25→23:21)
[2017-11-06] MEDS: AZITHROMYCIN 500 MG in DEXTROSE 5%-WATER 250 ML IV SCH (10:14)
[2017-11-06] MEDS: ENOXAPARIN SODIUM INJ 40 MG/0.4 ML DISP.SYRIN SUBCUT SCH (10:19)
--- NOTE | 2017-11-06 18:15 | PDOC PROGRESS REPORT ---
Subjective Progress Note for:: 11/06/17 Subjective:: No adverse events overnight. He slept better last night. He still having a lot of oral secretions. He is up to goal rate on his tube feeds and is tolerating it well. He remains in good spirits. Reason For Visit: RHABDOMYOLYSIS,DEHYDRATION,FALLWITH PROLONGED DOWN Physical Exam Vital Signs: Temp Pulse Resp BP Pulse Ox 98.5 F 72 20 137/61 H 99 11/06/17 16:38 11/06/17 16:38 11/06/17 16:38 11/06/17 16:38 11/06/17 16:38 Intake & Output 11/05/17 11/06/17 11/07/17 06:59 06:59 06:59 Intake Total 3145 4422 1352 Output Total 900 1200 Balance 2245 3222 1352 Weight 77.1 kg 83.4 kg General appearance: PRESENT: no acute distress, well-developed, well-nourished Respiratory exam: PRESENT: rhonchi. ABSENT: rales, wheezes Cardiovascular exam: PRESENT: RRR. ABSENT: diastolic murmur, rubs, systolic murmur GI/Abdominal exam: PRESENT: normal bowel sounds, soft. ABSENT: distended, guarding, mass, organolmegaly, rebound, tenderness Extremities exam: ABSENT: clubbing, pedal edema Neurological exam: PRESENT: awake - Drowsy but arousable, oriented to person, oriented to place Results Laboratory Results: 11/04/17 05:08 11/04/17 05:08 11/02/17 11/03/17 11/04/17 04:09 05:30 05:08 Creatine Kinase 2865 H 980 H 515 H Impressions: Head CT 11/01/17 16:37 IMPRESSION: CHRONIC MICROVASCULAR ISCHEMIA. NO ACUTE IMAGING FINDINGS IN THE BRAIN. DENSE VERTEBRAL BASILAR ATHEROSCLEROSIS. EVIDENCE OF ACUTE STROKE: NO. Chest X-Ray 11/02/17 00:00 IMPRESSION: Patchy right lower lobe airspace disease unchanged from 11/01/2017 Gastrostomy Tube Placement 11/03/17 00:00 IMPRESSION: Successful fluoroscopic guided placement of a Dobhoff tube. Guidance Fluoroscopy 11/03/17 00:00 IMPRESSION: Successful fluoroscopic guided placement of a Dobhoff tube. Head MRI 11/03/17 00:00 IMPRESSION: Involutional changes of aging with chronic microvascular ischemia and no acute intracranial imaging findings. EVIDENCE OF ACUTE STROKE: No Modified Barium Swallow 11/03/17 00:00 IMPRESSION: LARYNGEAL PENETRATION AND ASPIRATION OF ALL CONSISTENCIES.PLEASE SEE SPEECH PATHOLOGIST REPORT FOR OTHER FINDINGS AND RECOMMENDATIONS. Assessment & Plan - Diagnosis (1) Rhabdomyolysis Qualifiers: Rhabdomyolysis type: non-traumatic Qualified Code(s): M62.82 - Rhabdomyolysis Is this a current diagnosis for this admission?: Yes Plan: Resolved (2) Fall at home Qualifiers: Encounter type: initial encounter Qualified Code(s): W19.XXXA - Unspecified fall, initial encounter; Y92.009 - Unspecified place in unspecified non-institutional (private) residence as the place of occurrence of the external cause; Y92.009 - Unspecified place in unspecified non-institutional ( private) residence as the place of occurrence of the external cause Is this a current diagnosis for this admission?: Yes Plan: I got to speak with his family, they are in agreement that he would probably benefit from a stay in a intermediate facility, if not long-term placement. (3) Right lower lobe pneumonia Qualifiers: Pneumonia type: aspiration pneumonia Qualified Code(s): J18.1 - Lobar pneumonia, unspecified organism Is this a current diagnosis for this admission?: Yes Plan: Likely due to aspiration. He is on Zosyn. Blood cultures remain negative (4) Dysphagia causing pulmonary aspiration with swallowing Is this a current diagnosis for this admission?: Yes Plan: MRI of the brain was negative for acute stroke. I expect this is likely an acute change for him due to his profound weakness given the fact he was now on the floor for a few days and he has not had anything to eat in a few days either. Started tube feeds through Dobbhoff tube and will try to get him up to his goal rate of 65 mL's an hour today. He is tolerating it well so far. Hopefully this will give him some energy sufficient to strengthen him for physical therapy and speech therapy. He should be stable for discharge once a bed becomes available.
[2017-11-06] MEDS: MIRTAZAPINE 15 MG TABLET PO SCH (22:02)
[2017-11-07] MEDS: 1/2 NORMAL SALINE 1,000 ML IV PRN ×2 (01:27→23:29)
[2017-11-07] MEDS: PIPERACILLIN SODIUM/TAZOBACTAM 3.375 GM in NORMAL SALINE 100 ML IV SCH ×4 (05:28→23:29)
[2017-11-07] MEDS: ENOXAPARIN SODIUM INJ 40 MG/0.4 ML DISP.SYRIN SUBCUT SCH (10:05)
[2017-11-07] MEDS: AZITHROMYCIN 500 MG in DEXTROSE 5%-WATER 250 ML IV SCH (10:06)
--- NOTE | 2017-11-07 15:54 | RADIOLOGY REPORT (SQ) ---
EXAM DESCRIPTION: INTRO/GI TUBE W/FLUORO COMPLETED DATE/TIME: 11/07/2017 3:11 pm REASON FOR STUDY: dysphagia- DOBHOFF INSERTION FOR NUTRITION COMPARISON: None. TECHNIQUE: Live fluoroscopic guidance. RADIATION DOSE: 3 minutes 59 seconds of fluoroscopy was used. 1 images saved to PACS. LIMITATIONS: None. FINDINGS: The patient was brought to the fluoroscopy room and placed supine on the fluoroscopy table . A NJ-tube was advanced through the left nostril through the stomach and ending in the 3rd portion o f the duodenum. Approximately 20 mL of non ionic contrast was injected through the catheter to confi rm placement. A fluoroscopic spot film was saved to PACs demonstrating catheter tip within the 3rd po rtion of the duodenum. IMPRESSION: Successful fluoroscopic guided placement of a NJ tube. COMMENT: Quality ID [id number]: Final reports for procedures using fluoroscopy that document radiation exp osure indices, or exposure time and number of fluorographic images (if radiation exposure indices are not available) TECHNICAL DOCUMENTATION: JOBD ID: [id number] [employer]- All Rights Reserved Reading location - IP/workstation name: [email or web address]
--- NOTE | 2017-11-07 17:33 | PDOC PROGRESS REPORT ---
Subjective Progress Note for:: 11/07/17 Subjective:: He got agitated last night and pulled out his Dobbhoff tube. He has had some congested sounds to his breathing and for some reason it does not seem to occur to him to cough and try to clear his throat. When I coached him and encourage him to take a deep breath and cough hard he will do it, but it does not seem like he will do out of his own volition. His vital signs been stable. Reason For Visit: RHABDOMYOLYSIS,DEHYDRATION,FALLWITH PROLONGED DOWN Physical Exam Vital Signs: Temp Pulse Resp BP Pulse Ox 98.7 F 70 19 126/79 H 97 11/07/17 16:30 11/07/17 16:30 11/07/17 16:30 11/07/17 16:30 11/07/17 16:30 Intake & Output 11/06/17 11/07/17 11/08/17 06:59 06:59 06:59 Intake Total 4422 2352 Output Total 1200 2000 Balance 3222 352 Weight 83.4 kg 85.6 kg General appearance: PRESENT: no acute distress, well-developed, well-nourished Respiratory exam: PRESENT: rhonchi - Central, improves after he coughs and clears his throat, unlabored. ABSENT: rales, wheezes Cardiovascular exam: PRESENT: RRR. ABSENT: diastolic murmur, rubs, systolic murmur Vascular exam: PRESENT: normal capillary refill GI/Abdominal exam: PRESENT: normal bowel sounds, soft. ABSENT: distended, guarding, mass, organolmegaly, rebound, tenderness Extremities exam: ABSENT: clubbing, pedal edema Musculoskeletal exam: PRESENT: normal inspection. ABSENT: deformity Neurological exam: PRESENT: alert, awake, oriented to person, oriented to place Skin exam: PRESENT: dry, warm Results Laboratory Results: 11/04/17 05:08 11/04/17 05:08 11/02/17 11/03/17 11/04/17 04:09 05:30 05:08 Creatine Kinase 2865 H 980 H 515 H Impressions: Head CT 11/01/17 16:37 IMPRESSION: CHRONIC MICROVASCULAR ISCHEMIA. NO ACUTE IMAGING FINDINGS IN THE BRAIN. DENSE VERTEBRAL BASILAR ATHEROSCLEROSIS. EVIDENCE OF ACUTE STROKE: NO. Chest X-Ray 11/02/17 00:00 IMPRESSION: Patchy right lower lobe airspace disease unchanged from 11/01/2017 Gastrostomy Tube Placement 11/03/17 00:00 IMPRESSION: Successful fluoroscopic guided placement of a Dobhoff tube. Head MRI 11/03/17 00:00 IMPRESSION: Involutional changes of aging with chronic microvascular ischemia and no acute intracranial imaging findings. EVIDENCE OF ACUTE STROKE: No Modified Barium Swallow 11/03/17 00:00 IMPRESSION: LARYNGEAL PENETRATION AND ASPIRATION OF ALL CONSISTENCIES.PLEASE SEE SPEECH PATHOLOGIST REPORT FOR OTHER FINDINGS AND RECOMMENDATIONS. Guidance Fluoroscopy 11/07/17 00:00 IMPRESSION: Successful fluoroscopic guided placement of a NJ tube. Assessment & Plan - Diagnosis (1) Rhabdomyolysis Qualifiers: Rhabdomyolysis type: non-traumatic Qualified Code(s): M62.82 - Rhabdomyolysis Is this a current diagnosis for this admission?: Yes Plan: Resolved (2) Fall at home Qualifiers: Encounter type: initial encounter Qualified Code(s): W19.XXXA - Unspecified fall, initial encounter; Y92.009 - Unspecified place in unspecified non-institutional (private) residence as the place of occurrence of the external cause; Y92.009 - Unspecified place in unspecified non-institutional ( private) residence as the place of occurrence of the external cause Is this a current diagnosis for this admission?: Yes Plan: I got to speak with his family, they are in agreement that he would probably benefit from a stay in a care home facility, if not long-term placement. (3) Right lower lobe pneumonia Qualifiers: Pneumonia type: aspiration pneumonia Qualified Code(s): J18.1 - Lobar pneumonia, unspecified organism Is this a current diagnosis for this admission?: Yes Plan: Likely due to aspiration. He is on Zosyn. Blood cultures remain negative (4) Dysphagia causing pulmonary aspiration with swallowing Is this a current diagnosis for this admission?: Yes Plan: Had to replace his Dobbhoff tube. Then will need to resume his tube feedings. If we can get this done in time today we might be able to get him out to the care home facility this afternoon. If not, he will probably have to wait until . - Time Time Spent with patient: 25-34 minutes Medications reviewed and adjusted accordingly: Yes
[2017-11-08] MEDS: PIPERACILLIN SODIUM/TAZOBACTAM 3.375 GM in NORMAL SALINE 100 ML IV SCH ×4 (05:14→23:55)
[2017-11-08] MEDS: AZITHROMYCIN 500 MG in DEXTROSE 5%-WATER 250 ML IV SCH (10:00)
--- NOTE | 2017-11-08 15:19 | PDOC PROGRESS REPORT ---
Subjective Progress Note for:: 11/08/17 Subjective:: Overnight pulled out Dobbhoff tube for a second time. Continues to be confused. Has mucus production with difficulty clearing. Unable to cough. Has been afebrile and HDS. Complaining of pain in his fingers. Unclear chronicity of this. Denies abdominal pain, N/V. Reportedly has had bowel movement recently. Biggest complain is dry mouth and inability swallow. Supportive son and daughter in-law at bedside. They are very concerned that patient has not received nutrition in the last 12 hours since NJ came out. Reason For Visit: RHABDOMYOLYSIS,DEHYDRATION,FALLWITH PROLONGED DOWN Physical Exam Vital Signs: Temp Pulse Resp BP Pulse Ox 98.2 F 79 18 134/64 H 96 11/08/17 11:40 11/08/17 11:40 11/08/17 11:40 11/08/17 11:40 11/08/17 11:40 Intake & Output 11/07/17 11/08/17 11/09/17 06:59 06:59 06:59 Intake Total 2352 2686 Output Total 1999 2049 Balance 352 636 Weight 85.6 kg 85.7 kg General appearance: PRESENT: mild distress, well-developed, well-nourished, other - Elderly gentleman, pleasant Head exam: PRESENT: normocephalic Mouth exam: PRESENT: dry mucosa Teeth exam: PRESENT: edentulous Respiratory exam: PRESENT: unlabored Cardiovascular exam: ABSENT: tachycardia GI/Abdominal exam: PRESENT: soft. ABSENT: tenderness Neurological exam: PRESENT: alert, awake, other - Oriented to date. Not to place. Answers some questions appropriately and following some commands. Skin exam: PRESENT: dry Results Laboratory Results: 11/04/17 05:08 11/04/17 05:08 11/02/17 11/03/17 11/04/17 04:09 05:30 05:08 Creatine Kinase 2865 H 980 H 515 H Impressions: Head CT 11/01/17 16:37 IMPRESSION: CHRONIC MICROVASCULAR ISCHEMIA. NO ACUTE IMAGING FINDINGS IN THE BRAIN. DENSE VERTEBRAL BASILAR ATHEROSCLEROSIS. EVIDENCE OF ACUTE STROKE: NO. Chest X-Ray 11/02/17 00:00 IMPRESSION: Patchy right lower lobe airspace disease unchanged from 11/01/2017 Gastrostomy Tube Placement 11/03/17 00:00 IMPRESSION: Successful fluoroscopic guided placement of a Dobhoff tube. Head MRI 11/03/17 00:00 IMPRESSION: Involutional changes of aging with chronic microvascular ischemia and no acute intracranial imaging findings. EVIDENCE OF ACUTE STROKE: No Modified Barium Swallow 11/03/17 00:00 IMPRESSION: LARYNGEAL PENETRATION AND ASPIRATION OF ALL CONSISTENCIES.PLEASE SEE SPEECH PATHOLOGIST REPORT FOR OTHER FINDINGS AND RECOMMENDATIONS. Guidance Fluoroscopy 11/07/17 00:00 IMPRESSION: Successful fluoroscopic guided placement of a NJ tube. Assessment & Plan - Diagnosis (1) Dysphagia causing pulmonary aspiration with swallowing Is this a current diagnosis for this admission?: Yes Plan: Acute problem. At this point has had two Dobbhoff tube placed by radiology. Both were dislodged by patient during sleep. Discussed with patient's son that I am less concerned about feeding at this point. His albumin is 3.8, so does not have urgent indication to eat. Recommend NPO for now - Per discussion with family, goal is to maximize QOL and attempt to return patient back to his baseline. They are OK with PEG tube placement if felt would be helpful. - Consider ENT consult for treatment recommendations given acute nature of dysphagia. - Could also consider EGD by GI/surgery (2) Confusion Is this a current diagnosis for this admission?: Yes Plan: This is an acute issue. Per discussion with patient's son, he is fully functional, conversational, and ambulatory. Cause of confusion is likely multifactorial. Most likely due to hospital induced delirium. Infection also remains on the differential as he presented with RLL pna thought to be due to aspiration - currently on Zosyn. Other etiologies include medication induced ( currently on scopolomine patch) and previously received Remeron. Constipation and pain are two other common factors associated with delirium in the elderly however these seems to be less likely cause. Previously had MRI brain which was not indicative for acute CVA. Plan - Repeat infectious work up: blood culture, UA, and CXR - Medications reviewed, discontinue scopolamine patch - Delirium management: encouraged good wake/sleep cycle, avoid restraints, avoid sedating/delirogenic medications - If above work up is negative, would consider repeat CT head (3) Rhabdomyolysis Qualifiers: Rhabdomyolysis type: non-traumatic Qualified Code(s): M62.82 - Rhabdomyolysis Is this a current diagnosis for this admission?: Yes Plan: Improved (4) Right lower lobe pneumonia Qualifiers: Pneumonia type: aspiration pneumonia Qualified Code(s): J18.1 - Lobar pneumonia, unspecified organism Is this a current diagnosis for this admission?: Yes (5) Nutrition deficiency due to insufficient food Is this a current diagnosis for this admission?: Yes Plan: Per above - Consider PEG placement. Discussed aspiration risk associated with PEG - Time Time Spent with patient: 25-34 minutes
--- NOTE | 2017-11-08 15:30 | RADIOLOGY REPORT (SQ) ---
EXAM DESCRIPTION: CHEST SINGLE VIEW COMPLETED DATE/TIME: 11/08/2017 3:20 pm REASON FOR STUDY: aspiration, confusion, r/o worsening PNA COMPARISON: 11/02/2017 EXAM PARAMETERS: NUMBER OF VIEWS: One view. TECHNIQUE: Single frontal radiographic view of the chest acquired. RADIATION DOSE: NA LIMITATIONS: None. FINDINGS: LUNGS AND PLEURA: Increasing opacity at the right base. Left lung is clear. MEDIASTINUM AND HILAR STRUCTURES: No masses. Contour normal. HEART AND VASCULAR STRUCTURES: Heart normal in size. Normal vasculature. BONES: No acute findings. HARDWARE: None in the chest. OTHER: No other significant finding. IMPRESSION: Worsening right lower lobe pneumonia. TECHNICAL DOCUMENTATION: JOB ID: [id number] [employer]- All Rights Reserved Reading location - IP/workstation name: [email or web address]
[2017-11-08] MEDS: ENOXAPARIN SODIUM INJ 40 MG/0.4 ML DISP.SYRIN SUBCUT SCH (18:40)
[2017-11-08] MEDS: 1/2 NORMAL SALINE 1,000 ML IV PRN (20:32)
[2017-11-08 22:48] LABS: APPEARANCE,URINE CLEAR; BILIRUBIN,URINE NEGATIVE (NEGATIVE); COLOR,URINE YELLOW; GLUCOSE, URINE NEGATIVE (NEGATIVE); KETONES,URINE NEGATIVE (NEGATIVE); LEUKOCYTE ESTERASE,URINE NEGATIVE (NEGATIVE); NITRITE,URINE NEGATIVE (NEGATIVE); PROTEIN,URINE 30 mg/dL (NEGATIVE); URINE SPECIFIC GRAVITY 1.013; UROBILINOGEN,URINE NEGATIVE mg/dL (<2.0)
[2017-11-09 05:33] LABS: ABSOLUTE EOSINOPHILS # (AUTO) 0.3 10^3/uL (0.0-0.6); ABSOLUTE LYMPHOCYTES (AUTO) 1.1 10^3/uL (0.5-4.7); ABSOLUTE MONOCYTES (AUTO) 0.9 10^3/uL (0.1-1.4); ABSOLUTE NEUT (AUTO) 7.9 10^3/uL (1.7-8.2); BASOPHILS % (AUTO) 0.4 % (0-2); EOSINOPHILS % (AUTO) 3.3 % (0-6); HEMATOCRIT 32.3 % (37.9-51.0); HEMOGLOBIN 11.3 g/dL (13.5-17.0); LYMPHOCYTES % (AUTO) 10.9 % (13-45); MEAN CORPUSCULAR HEMOGLOBIN 33.3 pg (27.0-33.4); MEAN CORPUSCULAR HGB CONC 34.9 g/dL (32.0-36.0); MEAN CORPUSCULAR VOLUME 96 fl (80-97); MONOCYTES % (AUTO) 8.8 % (3-13); PLATELET COUNT 354 10^3/uL (150-450); RED BLOOD COUNT 3.38 10^6/uL (4.35-5.55); RED CELL DISTRIBUTION WIDTH 13.4 % (11.5-14.0); SEGMENTED NEUTROPHILS % (AUTO) 76.6 % (42-78); TOTAL CELLS COUNTED % (AUTO) 100 %; WHITE BLOOD COUNT 10.3 10^3/uL (4.0-10.5)
[2017-11-09 05:55] LABS: ALANINE AMINOTRANSFERASE 50 U/L (21-72); ALBUMIN 2.9 g/dL (3.5-5.0); ALKALINE PHOSPHATASE 45 U/L (38-126); ANION GAP 10 (5-19); ASPARTATE AMINO TRANSFERASE 35 U/L (17-59); BILIRUBIN,DIRECT 0.4 mg/dL (0.0-0.4); BILIRUBIN,TOTAL 0.9 mg/dL (0.2-1.3); BLOOD UREA NITROGEN 20 mg/dL (7-20); CALCIUM 8.6 mg/dL (8.4-10.2); CARBON DIOXIDE 31 mmol/L (22-30); CHLORIDE 101 mmol/L (98-107); GLUCOSE 79 mg/dL (75-110); POTASSIUM 4.2 mmol/L (3.6-5.0); SODIUM 141.8 mmol/L (137-145); TOTAL PROTEIN 5.5 g/dL (6.3-8.2)
[2017-11-09] MEDS: ENOXAPARIN SODIUM INJ 40 MG/0.4 ML DISP.SYRIN SUBCUT SCH (09:26)
[2017-11-09 10:16] LABS: PHOSPHORUS 3.7 mg/dL (2.5-4.5)
[2017-11-09] MEDS: 1/2 NORMAL SALINE 1,000 ML IV PRN (10:34)
[2017-11-09] MEDS: PIPERACILLIN SODIUM/TAZOBACTAM 3.375 GM in NORMAL SALINE 100 ML IV SCH ×3 (12:20→23:12)
--- NOTE | 2017-11-09 12:40 | RADIOLOGY REPORT (SQ) ---
EXAM DESCRIPTION: CHEST SINGLE VIEW COMPLETED DATE/TIME: 11/09/2017 12:24 pm REASON FOR STUDY: Hypoxia COMPARISON: Chest films 11/08/2017, 11/02/2017, 11/01/2017 EXAM PARAMETERS: NUMBER OF VIEWS: One view. TECHNIQUE: Single frontal radiographic view of the chest acquired. RADIATION DOSE: NA LIMITATIONS: None. FINDINGS: LUNGS AND PLEURA: Bibasilar airspace disease is present right greater than left worrisome for pneumonia. This is more prominent than on 11/01/2017. No pleural effusions. No pneumothorax. MEDIASTINUM AND HILAR STRUCTURES: No masses. Contour normal. HEART AND VASCULAR STRUCTURES: Heart normal in size. Normal vasculature. BONES: No acute findings. HARDWARE: None in the chest. OTHER: No other significant finding. IMPRESSION: Increasing bibasilar airspace disease TECHNICAL DOCUMENTATION: JOB ID: [id number] [employer]- All Rights Reserved Reading location - IP/workstation name: [email or web address]
--- NOTE | 2017-11-09 12:53 | RADIOLOGY REPORT (SQ) ---
EXAM DESCRIPTION: CT HEAD WITHOUT COMPLETED DATE/TIME: 11/09/2017 12:40 pm REASON FOR STUDY: confused COMPARISON: 11/01/2017 TECHNIQUE: Axial images acquired through the brain without intravenous contrast. Images reviewed wi th bone, brain and subdural windows. Additional sagittal and coronal reconstructions were generated. Images stored on PACS. All CT scanners at this facility use dose modulation, iterative reconstruction, and/or weight based d osing when appropriate to reduce radiation dose to as low as reasonably achievable (ALARA). [facility]: Dose Right [facility]: CareDose [facility]: Dose Right [facility]: Teradose 4D [facility]: Smart [employer] RADIATION DOSE: CT Rad equipment meets quality standard of care and radiation dose reduction techniq ues were employed. CTDIvol: 21.5 mGy. DLP: 433 mGy-cm. mGy. LIMITATIONS: None. FINDINGS: VENTRICLES: Prominent. CEREBRUM: No masses. No hemorrhage. No midline shift. Areas of low density in the white matter mos t likely due to chronic micro-vascular ischemic change. No evidence for acute infarction. CEREBELLUM: No masses. No hemorrhage. No alteration of density. No evidence for acute infarction. EXTRAAXIAL SPACES: Mild age-related involutional change. No fluid collections. No masses. ORBITS AND GLOBE: No intra- or extraconal masses. Normal contour of globe without masses. CALVARIUM: No fracture. PARANASAL SINUSES: No fluid or mucosal thickening. SOFT TISSUES: No mass or hematoma. OTHER: No other significant finding. IMPRESSION: MILD CHRONIC CHANGES OF ATROPHY AND MICROVASCULAR ISCHEMIA. NO ACUTE PROCESS. No inter flory change since the recent study. EVIDENCE OF ACUTE STROKE: NO. TECHNICAL DOCUMENTATION: JOB ID: [id number] Quality ID # [id number]: Final reports with documentation of one or more dose reduction techniques (e.g., Au tomated exposure control, adjustment of the mA and/or kV according to patient size, use of iterative reconstruction technique) 2010 [employer]- All Rights Reserved Reading location - IP/workstation name: [email or web address]
[2017-11-09] MEDS ORDERED: FUROSEMIDE INJ/PF 40 MG/4 ML SDV IV ONE (14:21)
--- NOTE | 2017-11-09 14:39 | PDOC PROGRESS REPORT ---
Subjective Progress Note for:: 11/09/17 Subjective:: The patient is an 87-year-old gentleman with no significant past medical history who was living by himself prior to current admission. His family had noticed that he was getting progressively weaker over the past few months and had hired somebody to check on him on a daily basis. He presented to the hospital on November 01 after being found by his family down on the floor. The last time he was seen normal was 3 days prior to that and nobody had checked on him in the interim. He was diagnosed with rhabdomyolysis and right lower lobe pneumonia which was suspected due to aspiration and he was started on Zosyn and some IV fluids. The patient failed his swallow evaluation including a modified barium swallow study. He was somewhat agitated earlier this week and became progressively more confused which was likely secondary to underlying dementia with a change in his environment. The patient had been started on some low-dose Remeron and a scopolamine patch. However his confusion and agitation worsened so these were stopped. The patient had also been started on azithromycin on admission which is known to cause confusion and agitation. This was discontinued today. He is currently on Zosyn. His oxygen requirements are 4 L by nasal cannula. Cardiac BNP is elevated and his chest x-ray shows a right-sided infiltrate and some pulmonary vascular congestion. I will go ahead and give him 1 dose of Lasix. MRI on Monday showed chronic changes but nothing acute. I spoke to his son this morning and discussed his concerns of change in the patient's mental status earlier this week. He felt that his father was more oriented this morning. A repeat CAT scan of the head done today again showed chronic changes with nothing acute. We discussed the fact that he is still not safe to take anything by mouth per speech therapy repeat evaluation this morning. He is agreeable to consideration for possible PEG tube placement. I have consulted Dr. Valenzuela who will be calling the patient's son to discuss the risks and benefits. The patient continues to be n.p.o. at present. He had a Dobbhoff placed twice since admission and it fell out twice. Reason For Visit: RHABDOMYOLYSIS,DEHYDRATION,FALLWITH PROLONGED DOWN Physical Exam Vital Signs: Temp Pulse Resp BP Pulse Ox 97.5 F 72 22 H 141/68 H 100 11/09/17 10:01 11/09/17 10:01 11/09/17 10:01 11/09/17 10:01 11/09/17 10:01 Intake & Output 11/08/17 11/09/17 11/10/17 06:59 06:59 06:59 Intake Total 2688 4497 Output Total 6 2470 Balance 636 -193 Weight 85.7 kg 85.4 kg General appearance: PRESENT: no acute distress, thin Eye exam: ABSENT: scleral icterus Ear exam: PRESENT: normal external ear exam Mouth exam: PRESENT: moist Neck exam: ABSENT: tracheal deviation Respiratory exam: PRESENT: crackles, rhonchi, symmetrical Cardiovascular exam: PRESENT: RRR GI/Abdominal exam: PRESENT: normal bowel sounds, soft. ABSENT: tenderness Rectal exam: PRESENT: deferred Extremities exam: ABSENT: pedal edema Neurological exam: PRESENT: alert, awake, oriented to place Skin exam: PRESENT: skin tears, other - Bruising and ecchymoses Results Laboratory Results: 11/09/17 03:55 11/09/17 03:55 11/08/17 11/09/17 11/09/17 22:08 03:55 03:55 WBC 10.3 RBC 3.38 L Hgb 11.3 L Hct 32.3 L MCV 96 MCH 33.3 MCHC 34.9 RDW 13.4 Plt Count 354 Seg Neutrophils % 76.6 Lymphocytes % 10.9 L Monocytes % 8.8 Eosinophils % 3.3 Basophils % 0.4 Absolute Neutrophils 7.9 Absolute Lymphocytes 1.1 Absolute Monocytes 0.9 Absolute Eosinophils 0.3 Absolute Basophils 0.0 Sodium 141.8 Potassium 4.2 Chloride 101 Carbon Dioxide 31 H Anion Gap 10 BUN 20 Creatinine 0.88 Est GFR ( Amer) > 60 Est GFR (Non-Af Amer) > 60 Glucose 79 Calcium 8.6 Phosphorus Magnesium Total Bilirubin 0.9 AST 35 ALT 50 Alkaline Phosphatase 45 Total Protein 5.5 L Albumin 2.9 L Urine Color YELLOW Urine Appearance CLEAR Urine pH 7.0 Ur Specific [place] 1.013 Urine Protein 30 H Urine Glucose (UA) NEGATIVE Urine Ketones NEGATIVE Urine Blood MODERATE H Urine Nitrite NEGATIVE Ur Leukocyte Esterase NEGATIVE Urine WBC (Auto) 1 Urine RBC (Auto) 12 11/09/17 03:55 WBC RBC Hgb Hct MCV MCH MCHC RDW Plt Count Seg Neutrophils % Lymphocytes % Monocytes % Eosinophils % Basophils % Absolute Neutrophils Absolute Lymphocytes Absolute Monocytes Absolute Eosinophils Absolute Basophils Sodium Potassium Chloride Carbon Dioxide Anion Gap BUN Creatinine Est GFR ( Amer) Est GFR (Non-Af Amer) Glucose Calcium Phosphorus 3.7 Magnesium 2.4 H Total Bilirubin AST ALT Alkaline Phosphatase Total Protein Albumin Urine Color Urine Appearance Urine pH Ur Specific [place] Urine Protein Urine Glucose (UA) Urine Ketones Urine Blood Urine Nitrite Ur Leukocyte Esterase Urine WBC (Auto) Urine RBC (Auto) 11/02/17 11/03/17 11/04/17 04:09 05:30 05:08 Creatine Kinase 2865 H 980 H 515 H NT-Pro-B Natriuret Pep 11/09/17 11/09/17 03:55 03:55 Creatine Kinase 104 NT-Pro-B Natriuret Pep 2650 H Impressions: Gastrostomy Tube Placement 11/03/17 00:00 IMPRESSION: Successful fluoroscopic guided placement of a Dobhoff tube. Head MRI 11/03/17 00:00 IMPRESSION: Involutional changes of aging with chronic microvascular ischemia and no acute intracranial imaging findings. EVIDENCE OF ACUTE STROKE: No Modified Barium Swallow 11/03/17 00:00 IMPRESSION: LARYNGEAL PENETRATION AND ASPIRATION OF ALL CONSISTENCIES.PLEASE SEE SPEECH PATHOLOGIST REPORT FOR OTHER FINDINGS AND RECOMMENDATIONS. Guidance Fluoroscopy 11/07/17 00:00 IMPRESSION: Successful fluoroscopic guided placement of a [place] tube. Chest X-Ray 11/09/17 00:00 IMPRESSION: Increasing bibasilar airspace disease Head CT 11/09/17 00:00 IMPRESSION: MILD CHRONIC CHANGES OF ATROPHY AND MICROVASCULAR ISCHEMIA. NO ACUTE PROCESS. No interval change since the recent study. EVIDENCE OF ACUTE STROKE: NO. Assessment & Plan - Diagnosis (1) Confusion Is this a current diagnosis for this admission?: Yes Plan: Likely secondary to acute illness and change in environment in the setting of dementia. (2) Dysphagia causing pulmonary aspiration with swallowing Is this a current diagnosis for this admission?: Yes Plan: N.p.o. for now. Plan for PEG tube placement. (3) Fall at home Qualifiers: Encounter type: initial encounter Qualified Code(s): W19.XXXA - Unspecified fall, initial encounter; Y92.009 - Unspecified place in unspecified non-institutional (private) residence as the place of occurrence of the external cause; Y92.009 - Unspecified place in unspecified non-institutional ( private) residence as the place of occurrence of the external cause Is this a current diagnosis for this admission?: Yes Plan: Fall precautions. Physical therapy. Eventual rehab would be indicated. (4) Nutrition deficiency due to insufficient food Is this a current diagnosis for this admission?: Yes Plan: We will start enteral nutrition once he has access. (5) Rhabdomyolysis Qualifiers: Rhabdomyolysis type: non-traumatic Qualified Code(s): M62.82 - Rhabdomyolysis Is this a current diagnosis for this admission?: Yes (6) Right lower lobe pneumonia Qualifiers: Pneumonia type: aspiration pneumonia Qualified Code(s): J18.1 - Lobar pneumonia, unspecified organism Is this a current diagnosis for this admission?: Yes Plan: On Zosyn. Aspiration precautions. Mouth suctioning 3 times a day. - Time Time Spent with patient: 35 or more minutes
--- NOTE | 2017-11-09 15:08 | PDOC H&P ---
History of Present Illness Admission Date/PCP: 11/01/17 18:33 KEVIN LE MD Patient complains of: Aspiration to liquid and solids History of Present Illness: JAIME JOHNSTON is a 87 year old male with a hx of progressively worsening dyspagia with aspiration to solid and liquids as noted by both the modified barium swallow as well as the speech pathologist evaluation. I have been requested to evaluate this patient for PEG placement. Past Medical History Cardiac Medical History: Reports: Hyperlipidema Psychiatric Medical History: Reports: Depression Past Surgical History Past Surgical History: Reports: Vascular Surgery Social History Lives with: Alone Smoking Status: Former Smoker Number of Years Smokin Frequency of Alcohol Use: Rare Hx Recreational Drug Use: No Drugs: None Hx Prescription Drug Abuse: No Family History Family History: Reviewed & Not Pertinent Parental Family History Reviewed: No Children Family History Reviewed: No Sibling(s) Family History Reviewed.: No Medication/Allergy Home Medications: Aspirin/Dipyridamole [Aggrenox 25 mg/200 mg Capsule SA] 1 cap PO Q12 11/01/17 Latanoprost [Xalatan 0.005% Oph Soln 2.5 ml] 1 drop OU QHS 11/01/17 Omeprazole 20 mg PO DAILY 11/01/17 Ramipril [Altace 2.5 mg Capsule] 2.5 mg PO DAILY 11/01/17 Simvastatin [Zocor 20 mg Tablet] 20 mg PO QPM 11/01/17 Allergies/Adverse Reactions: No Known Allergies Allergy (Verified 11/01/17 15:34) Physical Exam Vital Signs: Temp Pulse Resp BP Pulse Ox 97.5 F 72 22 H 141/68 H 100 11/09/17 10:01 11/09/17 10:01 11/09/17 10:01 11/09/17 10:01 11/09/17 10:01 Intake & Output 11/08/17 11/09/17 11/10/17 06:59 06:59 06:59 Intake Total 2356 6887 Output Total 6737 7360 Balance 636 -193 Weight 85.7 kg 85.4 kg General appearance: PRESENT: no acute distress Head exam: PRESENT: atraumatic Eye exam: PRESENT: EOMI Mouth exam: PRESENT: dry mucosa, neck supple Neck exam: PRESENT: full ROM Respiratory exam: PRESENT: clear to auscultation hua Cardiovascular exam: PRESENT: RRR GI/Abdominal exam: PRESENT: normal bowel sounds, other - scaphoid abdomen Extremities exam: PRESENT: full ROM Musculoskeletal exam: PRESENT: full ROM Neurological exam: PRESENT: alert, altered Results Laboratory Results: 11/09/17 03:55 11/09/17 03:55 11/08/17 11/09/17 11/09/17 22:08 03:55 03:55 WBC 10.3 RBC 3.38 L Hgb 11.3 L Hct 32.3 L MCV 96 MCH 33.3 MCHC 34.9 RDW 13.4 Plt Count 354 Seg Neutrophils % 76.6 Lymphocytes % 10.9 L Monocytes % 8.8 Eosinophils % 3.3 Basophils % 0.4 Absolute Neutrophils 7.9 Absolute Lymphocytes 1.1 Absolute Monocytes 0.9 Absolute Eosinophils 0.3 Absolute Basophils 0.0 Sodium 141.8 Potassium 4.2 Chloride 101 Carbon Dioxide 31 H Anion Gap 10 BUN 20 Creatinine 0.88 Est GFR ( Amer) > 60 Est GFR (Non-Af Amer) > 60 Glucose 79 Calcium 8.6 Phosphorus Magnesium Total Bilirubin 0.9 AST 35 ALT 50 Alkaline Phosphatase 45 Total Protein 5.5 L Albumin 2.9 L Urine Color YELLOW Urine Appearance CLEAR Urine pH 7.0 Ur Specific [place] 1.013 Urine Protein 30 H Urine Glucose (UA) NEGATIVE Urine Ketones NEGATIVE Urine Blood MODERATE H Urine Nitrite NEGATIVE Ur Leukocyte Esterase NEGATIVE Urine WBC (Auto) 1 Urine RBC (Auto) 12 11/09/17 03:55 WBC RBC Hgb Hct MCV MCH MCHC RDW Plt Count Seg Neutrophils % Lymphocytes % Monocytes % Eosinophils % Basophils % Absolute Neutrophils Absolute Lymphocytes Absolute Monocytes Absolute Eosinophils Absolute Basophils Sodium Potassium Chloride Carbon Dioxide Anion Gap BUN Creatinine Est GFR ( Amer) Est GFR (Non-Af Amer) Glucose Calcium Phosphorus 3.7 Magnesium 2.4 H Total Bilirubin AST ALT Alkaline Phosphatase Total Protein Albumin Urine Color Urine Appearance Urine pH Ur Specific [place] Urine Protein Urine Glucose (UA) Urine Ketones Urine Blood Urine Nitrite Ur Leukocyte Esterase Urine WBC (Auto) Urine RBC (Auto) 11/02/17 11/03/17 11/04/17 04:09 05:30 05:08 Creatine Kinase 2865 H 980 H 515 H NT-Pro-B Natriuret Pep 11/09/17 11/09/17 03:55 03:55 Creatine Kinase 104 NT-Pro-B Natriuret Pep 2650 H Impressions: Gastrostomy Tube Placement 11/03/17 00:00 IMPRESSION: Successful fluoroscopic guided placement of a Dobhoff tube. Head MRI 11/03/17 00:00 IMPRESSION: Involutional changes of aging with chronic microvascular ischemia and no acute intracranial imaging findings. EVIDENCE OF ACUTE STROKE: No Modified Barium Swallow 11/03/17 00:00 IMPRESSION: LARYNGEAL PENETRATION AND ASPIRATION OF ALL CONSISTENCIES.PLEASE SEE SPEECH PATHOLOGIST REPORT FOR OTHER FINDINGS AND RECOMMENDATIONS. Guidance Fluoroscopy 11/07/17 00:00 IMPRESSION: Successful fluoroscopic guided placement of a [place] tube. Chest X-Ray 11/09/17 00:00 IMPRESSION: Increasing bibasilar airspace disease Head CT 11/09/17 00:00 IMPRESSION: MILD CHRONIC CHANGES OF ATROPHY AND MICROVASCULAR ISCHEMIA. NO ACUTE PROCESS. No interval change since the recent study. EVIDENCE OF ACUTE STROKE: NO. Assessment & Plan - Diagnosis (1) Dysphagia causing pulmonary aspiration with swallowing Is this a current diagnosis for this admission?: Yes - Plan Summary Plan Summary: A/ Severe aspiration to fluids and solids Malnutrition P/ PEG tube placement today. Procedure risks, benefits, complications explained to patent and family, they understand and decide to proceed.
[2017-11-09] MEDS ORDERED: CEFOXITIN 1 GM/D5W RTU 1 GM/50 ML RTUPB IV SCH (16:00)
[2017-11-09] MEDS ORDERED: CEFOXITIN 1 GM/D5W RTU 1 GM/50 ML RTUPB IV PRN (16:28)
[2017-11-09] MEDS ORDERED: PROPOFOL INJ 200 MG/20 ML VIAL IV ONE (17:05)
[2017-11-09] MEDS ORDERED: MIDAZOLAM 2 MG/2 ML INJ ONE (17:21)
--- NOTE | 2017-11-09 18:18 | Operative Report ---
Nonrecallable Operative Report DATE OF SURGERY: 11/09/17 PREOPERATIVE DIAGNOSIS: dysphagia, aspiration of solids and liquids, manutrition POSTOPERATIVE DIAGNOSIS: same OPERATION: PEG placement SURGEON: THADDEUS HERNANDEZ ANESTHESIA: LMAC - plus local 5 mL 1% lidocaine TISSUE REMOVED OR ALTERED: n/a COMPLICATIONS: none ESTIMATED BLOOD LOSS: < 5mL INTRAOPERATIVE FINDINGS: as above PROCEDURE: see dictation
--- NOTE | 2017-11-09 20:00 | OPERATIVE REPORT E ---
Operative Report NAME: JAIME JOHNSTON : 1930 AGE: 87Y DATE OF SURGERY: 11/09/2017 ROOM: 404 PREOPERATIVE DIAGNOSES: 1. DYSPHAGIA. 2. MALNUTRITION. 3. ASPIRATION OF SOLIDS AND LIQUIDS. POSTOPERATIVE DIAGNOSIS: 1. DYSPHAGIA. 2. MALNUTRITION. 3. ASPIRATION OF SOLIDS AND LIQUIDS. OPERATION: Placement of PEG tube. SURGEON: THADDEUS HERNANDEZ M.D. MATCH MARKER: None. ESTIMATED BLOOD LOSS: None. COMPLICATIONS: None. ANESTHESIA: MAC by the anesthesiologist plus 5 mL of 1% lidocaine without epinephrine. INDICATION AND FINDINGS: The patient is an elderly 87-year-old male with severe dysphagia, aspiration of solids and liquids, and malnutrition in need of PEG for maintenance of his nutritional status. DESCRIPTION OF PROCEDURE: The procedure was done in the operating room. Patient was placed in the supine position. The head was then elevated. IV sedation provided by the anesthesiologist via MAC anesthesia. The gastroscope was inserted through the mouthpiece and into the mouth, esophagus and stomach. Preparation was fair. Transillumination of the anterior abdominal wall revealed the tip of the endoscope. The area was then pressed with a finger. Indentation was noted in the anterior gastric wall. The skin was then prepped with Betadine, infiltrated with lidocaine. An incision was made with a #11 blade and a 16-gauge needle was inserted through the skin into the stomach. The trocar was removed from the needle and a guidewire was inserted into the needle. This was grasped with an Endoloop and the wire was pulled out of the mouth together with the endoscope. The wire was then connected to the PEG tube and the wire was then pulled through the skin to allow the PEG tube to be delivered outside from the anterior abdominal wall and to be in a flashed position. The endoscope was then reinserted through the mouth, into the esophagus and stomach. Good position of the mushroom head of the PEG tube was noted flush against the anterior gastric wall. The gastroscope was then removed. The PEG tube was cut to length. A flange was inserted over the PEG tube down to the anterior abdominal wall skin. The flange was secured to the skin with 2-0 silk simple interrupted sutures. A cap and flange were then placed on top of the PEG tube. The patient tolerated the procedure well and transferred to the recovery room in satisfactory condition. DICTATING PHYSICIAN: THADDEUS HERNANDEZ M.D. [id number] PHY#: [id number] ID: [id number] JOB#: [id number] ACCT: [id number] cc:THADDEUS HERNANDEZ M.D. > [facility]
[2017-11-10] MEDS ORDERED: DILTIAZEM HCL INJ 25 MG/5 ML VIAL IV ONE (00:30)
[2017-11-10] MEDS ORDERED: DILTIAZEM HCL 30 MG TABLET NG ONE (00:30)
[2017-11-10 00:48] LABS: ALANINE AMINOTRANSFERASE 44 U/L (21-72); ALBUMIN 2.9 g/dL (3.5-5.0); ALKALINE PHOSPHATASE 47 U/L (38-126); ANION GAP 12 (5-19); ASPARTATE AMINO TRANSFERASE 31 U/L (17-59); BILIRUBIN,DIRECT 0.5 mg/dL (0.0-0.4); BILIRUBIN,TOTAL 0.8 mg/dL (0.2-1.3); BLOOD UREA NITROGEN 24 mg/dL (7-20); CALCIUM 8.5 mg/dL (8.4-10.2); CARBON DIOXIDE 28 mmol/L (22-30); CHLORIDE 99 mmol/L (98-107); GLUCOSE 91 mg/dL (75-110); POTASSIUM 3.9 mmol/L (3.6-5.0); SODIUM 139.3 mmol/L (137-145); TOTAL PROTEIN 5.6 g/dL (6.3-8.2)
[2017-11-10] MEDS: PIPERACILLIN SODIUM/TAZOBACTAM 3.375 GM in NORMAL SALINE 100 ML IV SCH ×3 (05:53→17:10)
[2017-11-10 06:32] LABS: ABSOLUTE EOSINOPHILS # (AUTO) 0.1 10^3/uL (0.0-0.6); ABSOLUTE LYMPHOCYTES (AUTO) 0.9 10^3/uL (0.5-4.7); ABSOLUTE MONOCYTES (AUTO) 0.7 10^3/uL (0.1-1.4); ABSOLUTE NEUT (AUTO) 9.2 10^3/uL (1.7-8.2); BASOPHILS % (AUTO) 0.4 % (0-2); EOSINOPHILS % (AUTO) 1.3 % (0-6); HEMATOCRIT 34.9 % (37.9-51.0); HEMOGLOBIN 11.8 g/dL (13.5-17.0); LYMPHOCYTES % (AUTO) 8.3 % (13-45); MEAN CORPUSCULAR HEMOGLOBIN 32.6 pg (27.0-33.4); MEAN CORPUSCULAR HGB CONC 33.9 g/dL (32.0-36.0); MEAN CORPUSCULAR VOLUME 96 fl (80-97); MONOCYTES % (AUTO) 6.7 % (3-13); PLATELET COUNT 388 10^3/uL (150-450); RED BLOOD COUNT 3.62 10^6/uL (4.35-5.55); RED CELL DISTRIBUTION WIDTH 13.6 % (11.5-14.0); SEGMENTED NEUTROPHILS % (AUTO) 83.3 % (42-78); TOTAL CELLS COUNTED % (AUTO) 100 %; WHITE BLOOD COUNT 11.1 10^3/uL (4.0-10.5)
[2017-11-10 06:45] LABS: ALANINE AMINOTRANSFERASE 46 U/L (21-72); ALBUMIN 3.1 g/dL (3.5-5.0); ALKALINE PHOSPHATASE 50 U/L (38-126); ANION GAP 11 (5-19); ASPARTATE AMINO TRANSFERASE 34 U/L (17-59); BILIRUBIN,DIRECT 0.4 mg/dL (0.0-0.4); BILIRUBIN,TOTAL 0.8 mg/dL (0.2-1.3); BLOOD UREA NITROGEN 29 mg/dL (7-20); CALCIUM 8.8 mg/dL (8.4-10.2); CARBON DIOXIDE 32 mmol/L (22-30); CHLORIDE 99 mmol/L (98-107); GLUCOSE 89 mg/dL (75-110); PHOSPHORUS 3.9 mg/dL (2.5-4.5); POTASSIUM 4.1 mmol/L (3.6-5.0); SODIUM 141.7 mmol/L (137-145); TOTAL PROTEIN 5.9 g/dL (6.3-8.2)
[2017-11-10 06:59] LABS: TROPONIN I 0.227 ng/mL
[2017-11-10] MEDS: ENOXAPARIN SODIUM INJ 40 MG/0.4 ML DISP.SYRIN SUBCUT SCH (09:45)
--- NOTE | 2017-11-10 11:14 | PDOC PROGRESS REPORT ---
Subjective Progress Note for:: 11/10/17 Subjective:: This is an 87-year-old male status post PEG tube. The PEG appears to be in good place. The patient denies any significant abdominal pain. No nausea or vomiting. No chest pain or shortness of breath. Reason For Visit: RHABDOMYOLYSIS,DEHYDRATION,FALLWITH PROLONGED DOWN Physical Exam Vital Signs: Temp Pulse Resp BP Pulse Ox 98.4 F 65 18 119/64 99 11/10/17 08:45 11/10/17 09:20 11/10/17 08:45 11/10/17 08:45 11/10/17 08:45 Intake & Output 11/09/17 11/10/17 11/11/17 06:59 06:59 06:59 Intake Total 2857 8820 Output Total 3050 1280 Balance -193 7540 Weight 85.4 kg 80.4 kg General appearance: PRESENT: thin, other - Elderly Head exam: PRESENT: atraumatic, normocephalic Eye exam: PRESENT: EOMI, PERRLA. ABSENT: scleral icterus GI/Abdominal exam: PRESENT: soft, tenderness - Minimal. ABSENT: distended, firm , guarding Skin exam: ABSENT: cyanosis, erythema, jaundice Results Laboratory Results: 11/10/17 06:00 11/10/17 06:00 11/09/17 11/10/17 11/10/17 23:56 06:00 06:00 WBC 11.1 H RBC 3.62 L Hgb 11.8 L Hct 34.9 L MCV 96 MCH 32.6 MCHC 33.9 RDW 13.6 Plt Count 388 Seg Neutrophils % 83.3 H Lymphocytes % 8.3 L Monocytes % 6.7 Eosinophils % 1.3 Basophils % 0.4 Absolute Neutrophils 9.2 H Absolute Lymphocytes 0.9 Absolute Monocytes 0.7 Absolute Eosinophils 0.1 Absolute Basophils 0.0 Sodium 139.3 141.7 Potassium 3.9 4.1 Chloride 99 99 Carbon Dioxide 28 32 H Anion Gap 12 11 BUN 24 H 29 H Creatinine 0.89 1.04 Est GFR ( Amer) > 60 > 60 Est GFR (Non-Af Amer) > 60 > 60 Glucose 91 89 Calcium 8.5 8.8 Phosphorus 3.9 Magnesium 2.3 Total Bilirubin 0.8 0.8 AST 31 34 ALT 44 46 Alkaline Phosphatase 47 50 Total Protein 5.6 L 5.9 L Albumin 2.9 L 3.1 L 11/02/17 11/03/17 11/04/17 04:09 05:30 05:08 Creatine Kinase 2865 H 980 H 515 H Troponin I NT-Pro-B Natriuret Pep 11/09/17 11/09/17 11/09/17 03:55 03:55 23:56 Creatine Kinase 104 Troponin I 0.054 NT-Pro-B Natriuret Pep 2650 H 11/10/17 06:00 Creatine Kinase Troponin I 0.227 NT-Pro-B Natriuret Pep 1840 H Impressions: Gastrostomy Tube Placement 11/03/17 00:00 IMPRESSION: Successful fluoroscopic guided placement of a Dobhoff tube. Head MRI 11/03/17 00:00 IMPRESSION: Involutional changes of aging with chronic microvascular ischemia and no acute intracranial imaging findings. EVIDENCE OF ACUTE STROKE: No Modified Barium Swallow 11/03/17 00:00 IMPRESSION: LARYNGEAL PENETRATION AND ASPIRATION OF ALL CONSISTENCIES.PLEASE SEE SPEECH PATHOLOGIST REPORT FOR OTHER FINDINGS AND RECOMMENDATIONS. Guidance Fluoroscopy 11/07/17 00:00 IMPRESSION: Successful fluoroscopic guided placement of a [place] tube. Chest X-Ray 11/09/17 00:00 IMPRESSION: Increasing bibasilar airspace disease Head CT 11/09/17 00:00 IMPRESSION: MILD CHRONIC CHANGES OF ATROPHY AND MICROVASCULAR ISCHEMIA. NO ACUTE PROCESS. No interval change since the recent study. EVIDENCE OF ACUTE STROKE: NO. Assessment & Plan - Diagnosis (1) Dysphagia causing pulmonary aspiration with swallowing Is this a current diagnosis for this admission?: Yes - Plan Summary Plan Summary: This is an 87-year-old male status post PEG insertion. The patient appears to be doing well. His vital signs are stable. His abdomen is minimally tender ( which is normal) and nondistended. I will start the patient's tube feeds at 10 cc/h. Monitor residuals throughout the day and overnight. If the patient tolerates these slow tube feedings, he may be advanced tomorrow. Will follow.
[2017-11-10] MEDS: PANTOPRAZOLE SODIUM 40 MG VIAL IV SCH (12:08)
--- NOTE | 2017-11-10 13:30 | EKG REPORT ---
SEVERITY:- ABNORMAL ECG - ATRIAL FIBRILLATION RBBB AND LAFB PROBABLE LEFT VENTRICULAR HYPERTROPHY NEW T INVERSIONS INFERIOR LEADS COMPARED TO 11/01/17 EKG : Confirmed by: Js Garnica MD 10-Nov-2017 13:30:20
--- NOTE | 2017-11-10 17:27 | PDOC PROGRESS REPORT ---
Subjective Progress Note for:: 11/10/17 - patient seen on rounds this morning Reason For Visit: RHABDOMYOLYSIS,DEHYDRATION,FALLWITH PROLONGED DOWN Physical Exam Vital Signs: Temp Pulse Resp BP Pulse Ox 98.1 F 62 16 122/63 100 11/10/17 15:30 11/10/17 15:30 11/10/17 15:30 11/10/17 15:30 11/10/17 15:30 Intake & Output 11/09/17 11/10/17 11/11/17 06:59 06:59 06:59 Intake Total 2857 8820 70 Output Total 3050 1280 Balance -193 7540 70 Weight 188 lb 4.396 oz 177 lb 4.026 oz Results Laboratory Results: 11/10/17 06:00 11/10/17 06:00 11/09/17 11/10/17 11/10/17 23:56 06:00 06:00 WBC 11.1 H RBC 3.62 L Hgb 11.8 L Hct 34.9 L MCV 96 MCH 32.6 MCHC 33.9 RDW 13.6 Plt Count 388 Seg Neutrophils % 83.3 H Lymphocytes % 8.3 L Monocytes % 6.7 Eosinophils % 1.3 Basophils % 0.4 Absolute Neutrophils 9.2 H Absolute Lymphocytes 0.9 Absolute Monocytes 0.7 Absolute Eosinophils 0.1 Absolute Basophils 0.0 Sodium 139.3 141.7 Potassium 3.9 4.1 Chloride 99 99 Carbon Dioxide 28 32 H Anion Gap 12 11 BUN 24 H 29 H Creatinine 0.89 1.04 Est GFR ( Amer) > 60 > 60 Est GFR (Non-Af Amer) > 60 > 60 Glucose 91 89 Calcium 8.5 8.8 Phosphorus 3.9 Magnesium 2.3 Total Bilirubin 0.8 0.8 AST 31 34 ALT 44 46 Alkaline Phosphatase 47 50 Total Protein 5.6 L 5.9 L Albumin 2.9 L 3.1 L 11/02/17 11/03/17 11/04/17 04:09 05:30 05:08 Creatine Kinase 2865 H 980 H 515 H Troponin I NT-Pro-B Natriuret Pep 11/09/17 11/09/17 11/09/17 03:55 03:55 23:56 Creatine Kinase 104 Troponin I 0.054 NT-Pro-B Natriuret Pep 2650 H 07/06/18 06:00 Creatine Kinase Troponin I 0.227 NT-Pro-B Natriuret Pep 1840 H Impressions: Gastrostomy Tube Placement 11/03/17 00:00 IMPRESSION: Successful fluoroscopic guided placement of a Dobhoff tube. Head MRI 11/03/17 00:00 IMPRESSION: Involutional changes of aging with chronic microvascular ischemia and no acute intracranial imaging findings. EVIDENCE OF ACUTE STROKE: No Modified Barium Swallow 11/03/17 00:00 IMPRESSION: LARYNGEAL PENETRATION AND ASPIRATION OF ALL CONSISTENCIES.PLEASE SEE SPEECH PATHOLOGIST REPORT FOR OTHER FINDINGS AND RECOMMENDATIONS. Guidance Fluoroscopy 11/07/17 00:00 IMPRESSION: Successful fluoroscopic guided placement of a [place] tube. Chest X-Ray 11/09/17 00:00 IMPRESSION: Increasing bibasilar airspace disease Head CT 11/09/17 00:00 IMPRESSION: MILD CHRONIC CHANGES OF ATROPHY AND MICROVASCULAR ISCHEMIA. NO ACUTE PROCESS. No interval change since the recent study. EVIDENCE OF ACUTE STROKE: NO. Assessment & Plan - Diagnosis (1) Confusion Is this a current diagnosis for this admission?: Yes (2) Dysphagia causing pulmonary aspiration with swallowing Is this a current diagnosis for this admission?: Yes (3) Fall at home Qualifiers: Encounter type: initial encounter Qualified Code(s): W19.XXXA - Unspecified fall, initial encounter; Y92.009 - Unspecified place in unspecified non-institutional (private) residence as the place of occurrence of the external cause; Y92.009 - Unspecified place in unspecified non-institutional ( private) residence as the place of occurrence of the external cause Is this a current diagnosis for this admission?: Yes (4) Rhabdomyolysis Qualifiers: Rhabdomyolysis type: non-traumatic Qualified Code(s): M62.82 - Rhabdomyolysis Is this a current diagnosis for this admission?: Yes (5) Right lower lobe pneumonia Qualifiers: Pneumonia type: aspiration pneumonia Qualified Code(s): J18.1 - Lobar pneumonia, unspecified organism Is this a current diagnosis for this admission?: Yes - Time Time Spent with patient: 25-34 minutes - Plan Summary Plan Summary: 87-year-old male who was admitted after family found him on the floor. He had been getting progressively weak as per family. After admission he was also found to have a right lower lobe pneumonia and rhabdomyolysis. He was treated with IV antibiotics and fluids. He also failed swallow eval and progressively became confused. He has been requiring oxygen via nasal cannula. He had an MRI done which did not show any acute changes there is concern for his mental status and it is unclear as to the cause. Due to continued risk of aspiration and dysphagia family agreed to have PEG tube placed which was placed yesterday- slow tube feeds have been started and if he tolerates we will advance. We will go ahead and consult nutrition regarding his continued need and given his new PEG tube was it is any changes or not. He's currently on IV Zosyn but chest x- ray from yesterday shows bibasilar airspace disease, right greater than left, worrisome for pneumonia. I have tried to call his son today but no answer to discuss these findings and whether they would like me to switch antibiotics given his age and previous medication intolerance. Patient's family has also agreed in the past for discharge to nursing facility when ready. Overnight patient did go into A. fib and required Cardizem for rate control. Since then his heart rate has been well controlled.
[2017-11-11] MEDS: PIPERACILLIN SODIUM/TAZOBACTAM 3.375 GM in NORMAL SALINE 100 ML IV SCH ×2 (00:14→05:11)
[2017-11-11] MEDS: ENOXAPARIN SODIUM INJ 40 MG/0.4 ML DISP.SYRIN SUBCUT SCH (09:59)
[2017-11-11] MEDS: PANTOPRAZOLE SODIUM 40 MG VIAL IV SCH (09:59)
--- NOTE | 2017-11-11 10:33 | EKG REPORT ---
SEVERITY:- ABNORMAL ECG - ATRIAL FIBRILLATION RBBB AND LAFB : Confirmed by: Js Garnica MD 11-Nov-2017 10:33:05
--- NOTE | 2017-11-11 10:33 | EKG REPORT ---
SEVERITY:- ABNORMAL ECG - SINUS RHYTHM FIRST DEGREE AV BLOCK RBBB AND LAFB PROBABLE LEFT VENTRICULAR HYPERTROPHY : Confirmed by: Js Garnica MD 11-Nov-2017 10:32:50
--- NOTE | 2017-11-11 10:34 | PDOC PROGRESS REPORT ---
Subjective Progress Note for:: 11/11/17 Subjective:: Alert, awake, cooperative Reason For Visit: RHABDOMYOLYSIS,DEHYDRATION,FALLWITH PROLONGED DOWN Physical Exam Vital Signs: Temp Pulse Resp BP Pulse Ox 97.9 F 84 20 142/79 H 98 11/11/17 07:28 11/11/17 07:28 11/11/17 07:28 11/11/17 07:28 11/11/17 07:28 Intake & Output 11/10/17 11/11/17 11/12/17 06:59 06:59 06:59 Intake Total 8820 530 Output Total 1280 Balance 7540 530 Weight 80.4 kg 75.3 kg General appearance: PRESENT: no acute distress GI/Abdominal exam: PRESENT: normal bowel sounds, soft, other - GTube site = c/d/ i Results Laboratory Results: 11/10/17 06:00 11/10/17 06:00 11/02/17 11/03/17 11/04/17 04:09 05:30 05:08 Creatine Kinase 2865 H 980 H 515 H Troponin I NT-Pro-B Natriuret Pep 11/09/17 11/09/17 11/09/17 03:55 03:55 23:56 Creatine Kinase 104 Troponin I 0.054 NT-Pro-B Natriuret Pep 2650 H 11/10/17 06:00 Creatine Kinase Troponin I 0.227 NT-Pro-B Natriuret Pep 1840 H Impressions: Gastrostomy Tube Placement 11/03/17 00:00 IMPRESSION: Successful fluoroscopic guided placement of a Dobhoff tube. Head MRI 11/03/17 00:00 IMPRESSION: Involutional changes of aging with chronic microvascular ischemia and no acute intracranial imaging findings. EVIDENCE OF ACUTE STROKE: No Modified Barium Swallow 11/03/17 00:00 IMPRESSION: LARYNGEAL PENETRATION AND ASPIRATION OF ALL CONSISTENCIES.PLEASE SEE SPEECH PATHOLOGIST REPORT FOR OTHER FINDINGS AND RECOMMENDATIONS. Guidance Fluoroscopy 11/07/17 00:00 IMPRESSION: Successful fluoroscopic guided placement of a NJ tube. Chest X-Ray 11/09/17 00:00 IMPRESSION: Increasing bibasilar airspace disease Head CT 11/09/17 00:00 IMPRESSION: MILD CHRONIC CHANGES OF ATROPHY AND MICROVASCULAR ISCHEMIA. NO ACUTE PROCESS. No interval change since the recent study. EVIDENCE OF ACUTE STROKE: NO. Assessment & Plan - Diagnosis (1) Dysphagia causing pulmonary aspiration with swallowing Is this a current diagnosis for this admission?: Yes - Plan Summary Plan Summary: A/ POD #2 after PEG placement Tube feeding at 10 mL/hr well tolerated P/ Increase TF via PEG of 5 mL every 6 hours until goal rate as per corporate travel counselor PEG tube [id number] as per routine I will sign off, please, call me with questions
--- NOTE | 2017-11-11 12:48 | RADIOLOGY REPORT (SQ) ---
EXAM DESCRIPTION: CHEST SINGLE VIEW COMPLETED DATE/TIME: 11/11/2017 12:08 pm REASON FOR STUDY: pneumonia vs edema COMPARISON: AP chest 11/01/2017, 11/08/2017, 11/09/2017 EXAM PARAMETERS: NUMBER OF VIEWS: One view. TECHNIQUE: Single frontal radiographic view of the chest acquired. RADIATION DOSE: NA LIMITATIONS: None. FINDINGS: LUNGS AND PLEURA: Partial clearing of the right lower lobe pneumonia compared to 11/08/2017 and 11/09/2017. No new infiltrates. No pneumothorax. No pleural effusion. MEDIASTINUM AND HILAR STRUCTURES: No masses. Contour normal. HEART AND VASCULAR STRUCTURES: Stable mild cardiomegaly, tortuous uncoiled thoracic aorta. BONES: No acute findings. HARDWARE: None in the chest. OTHER: No other significant finding. IMPRESSION: Partial clearing of the right lower lobe pneumonia compared to previous studies. No oth er focal infiltrates. TECHNICAL DOCUMENTATION: JOB ID: [id number] [employer]- All Rights Reserved Reading location - IP/workstation name: [email or web address]
--- NOTE | 2017-11-11 15:35 | PDOC PROGRESS REPORT ---
Subjective Progress Note for:: 11/11/17 - seen on rounds this morning Subjective:: Patient is doing well today. He is alert awake and oriented 2. Spoke with his son at bedside today. We had a long conversation about his father and everything that happened to him in the last 2 weeks. He agrees with the plan at this time and we will get a chest x-ray to see how his pneumonia is doing. His PEG tube is in place and working well. Reason For Visit: RHABDOMYOLYSIS,DEHYDRATION,FALLWITH PROLONGED DOWN Physical Exam Vital Signs: Temp Pulse Resp BP Pulse Ox 97.4 F 76 20 125/64 100 11/11/17 11:32 11/11/17 11:32 11/11/17 11:32 11/11/17 11:32 11/11/17 11:32 Intake & Output 11/10/17 11/11/17 11/12/17 06:59 06:59 06:59 Intake Total 8820 530 Output Total 1280 Balance 7540 530 Weight 177 lb 4.026 oz 166 lb 0.129 oz General appearance: PRESENT: no acute distress, thin - Cachectic Head exam: PRESENT: atraumatic, normocephalic Eye exam: PRESENT: EOMI. ABSENT: conjunctival injection, scleral icterus Ear exam: PRESENT: normal external ear exam Mouth exam: PRESENT: moist, tongue midline Neck exam: ABSENT: JVD, tenderness Respiratory exam: PRESENT: decreased breath sounds - Mostly in the right side, rales - Appreciated in the upper lobes, symmetrical. ABSENT: accessory muscle use Cardiovascular exam: PRESENT: +S1, +S2 Pulses: PRESENT: +2 pedal pulses bilateral GI/Abdominal exam: PRESENT: normal bowel sounds, soft, other - PEG tube noted with no surrounding erythema. ABSENT: tenderness Extremities exam: ABSENT: joint swelling, pedal edema, tenderness Musculoskeletal exam: ABSENT: tenderness Neurological exam: PRESENT: alert, awake, oriented to person, oriented to place , CN II-XII grossly intact Skin exam: PRESENT: dry, warm Results Laboratory Results: 11/10/17 06:00 11/10/17 06:00 11/02/17 11/03/17 11/04/17 04:09 05:30 05:08 Creatine Kinase 2865 H 980 H 515 H Troponin I NT-Pro-B Natriuret Pep 11/09/17 11/09/17 11/09/17 03:55 03:55 23:56 Creatine Kinase 104 Troponin I 0.054 NT-Pro-B Natriuret Pep 2650 H 11/10/17 11/11/17 06:00 10:53 Creatine Kinase Troponin I 0.227 0.079 NT-Pro-B Natriuret Pep 1840 H Impressions: Gastrostomy Tube Placement 11/03/17 00:00 IMPRESSION: Successful fluoroscopic guided placement of a Dobhoff tube. Head MRI 11/03/17 00:00 IMPRESSION: Involutional changes of aging with chronic microvascular ischemia and no acute intracranial imaging findings. EVIDENCE OF ACUTE STROKE: No Modified Barium Swallow 11/03/17 00:00 IMPRESSION: LARYNGEAL PENETRATION AND ASPIRATION OF ALL CONSISTENCIES.PLEASE SEE SPEECH PATHOLOGIST REPORT FOR OTHER FINDINGS AND RECOMMENDATIONS. Guidance Fluoroscopy 11/07/17 00:00 IMPRESSION: Successful fluoroscopic guided placement of a [place] tube. Head CT 11/09/17 00:00 IMPRESSION: MILD CHRONIC CHANGES OF ATROPHY AND MICROVASCULAR ISCHEMIA. NO ACUTE PROCESS. No interval change since the recent study. EVIDENCE OF ACUTE STROKE: NO. Chest X-Ray 11/11/17 00:00 IMPRESSION: Partial clearing of the right lower lobe pneumonia compared to previous studies. No other focal infiltrates. Assessment & Plan - Diagnosis (1) Dysphagia causing pulmonary aspiration with swallowing Is this a current diagnosis for this admission?: Yes (2) Right lower lobe pneumonia Qualifiers: Pneumonia type: aspiration pneumonia Qualified Code(s): J18.1 - Lobar pneumonia, unspecified organism Is this a current diagnosis for this admission?: Yes (3) Confusion Is this a current diagnosis for this admission?: Yes (4) Fall at home Qualifiers: Encounter type: initial encounter Qualified Code(s): W19.XXXA - Unspecified fall, initial encounter; Y92.009 - Unspecified place in unspecified non-institutional (private) residence as the place of occurrence of the external cause; Y92.009 - Unspecified place in unspecified non-institutional ( private) residence as the place of occurrence of the external cause Is this a current diagnosis for this admission?: Yes (5) Rhabdomyolysis Qualifiers: Rhabdomyolysis type: non-traumatic Qualified Code(s): M62.82 - Rhabdomyolysis Is this a current diagnosis for this admission?: Yes - Time Time Spent with patient: 25-34 minutes - Plan Summary Plan Summary: Mr. Shah is doing well and I had a long conversation with the son regarding his care. His son is in agreement with this care at this time. He understands that at some point he may be eligible for SNF. I explained to him at this time he is much more comfortable and less confused. There is still the concern of mucus from his lungs which is causing secretions and is having a difficult time clearing. This may be on the cause that he most likely keeps having aspiration pneumonia. He has been on Zosyn for a long time since arrival for treatment of aspiration pneumonia. I did order a chest x-ray this afternoon to see if it has cleared or not. The chest x-ray shows partial clearing of the right lower lobe pneumonia. He has remained afebrile and is WBC count has remained stable. Although he is not showing any signs of pneumonia or sepsis-given his risk of aspiration there is a chance that his pneumonia from admission has not completely cleared. I think at this point given his overall picture and him improving it would be beneficial to discontinue the Zosyn and see how he does. His PEG tube is working well and his tube feeds have been advanced. If he has to go to SNF -likely will not happen until Monday.
--- NOTE | 2017-11-11 16:21 | PROGRESS NOTE E ---
Progress Note NAME: JAIME JOHNSTON : 1930 AGE: 87Y DATE: 11/11/2017 ROOM: 305 SUBJECTIVE: Note that the patient is oriented to person, place, but not to time. He knows that his son just visited him. The patient denies any chest pain or discomfort. There is some cough, but the patient is not able to say if he is bringing out any sputum or the color of his sputum. He denies any chest pain or discomfort. He has converted to sinus mechanism with first-degree AV block and bifascicular block (trifascicular block). The patient denies any shortness of breath, PND or orthopnea. There is no ventricular arrhythmia seen on the monitor. OBJECTIVE: GENERAL: On examination, the patient appears to be malnourished and dehydrated, and older than his stated age. He is also emaciated. VITAL SIGNS: He is afebrile, with a temperature of 97.9 degrees Fahrenheit. Pulse is 84 beats per minute, blood pressure is 142/79, respirations are 20 per minute, O2 sats are 98% on 4 liters nasal cannula. HEENT: Head is atraumatic, normocephalic. Eyes: Pupils are equal, round, regular, reactive to light and accommodation. Extraocular movements are normal. There is no conjunctival pallor. ENT is negative, except for dry mucous membranes of the mouth and dry tongue. NECK: Supple. There is no JVD. Carotids are equal. There is faint bruit bilaterally. There is scar from right carotid endarterectomy present. There is no lymphadenopathy. There is no goiter. Trachea is central. LUNGS: Show dry crackles in the right base. There are no rales or CHF. CHEST: There is no chest wall tenderness. HEART: S1, S2 are heard. There is no S3 gallop. There is no S4 gallop. There is a systolic murmur at the left sternal border, at the apex. There is no rub. S1 is of normal intensity. ABDOMEN: Soft. There is a PEG tube in-situ. Dressing around it is dry. There is no hepatosplenomegaly. Bowel sounds are well-heard. EXTREMITIES: Femorals are diminished. There are no femoral bruits. Leg pulses are diminished. There is no pedal edema. There is no DVT or cellulitis. There is no calf tenderness. [employer] COUNSELOR: The patient is conscious, awake, oriented to person and place, but not to time. There is mild left-sided weakness present. PSYCHIATRIC: The patient does not appear to be agitated or anxious. Note, full psychiatric exam could not be obtained. DIAGNOSTICS: The patient's chest x-ray done on 11/09/2017 showed that there is improvement in the aeration of the right lower lobe pneumonic area in the lung. The patient's EKG done yesterday shows atrial fibrillation *------*. The patient's chest x-ray done today shows partial clearing of the right lower lobe pneumonia compared to prior studies. The patient's EKG shows sinus rhythm with first-degree AV block, right bundle branch block pattern, and left anterior fascicular block pattern (trifascicular block), probably left ventricular hypertrophy. The patient's troponin has come down to 0.079. IMPRESSION: 1. ELEVATED TROPONIN I, SECONDARY TO PAROXYSMAL ATRIAL FIBRILLATION, DEHYDRATION, PNEUMONIA AND RHABDOMYOLYSIS. No evidence of non-ST elevation WI. The patient has no anginal symptoms. 2. PAROXYSMAL ATRIAL FIBRILLATION. At present, in sinus mechanism. 3. 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 It is not very clear whether the patient had a syncopal episode that led to his fall and his prolonged lying on the floor. The patient clearly would need an EP study to assess the trifascicular block due to diffuse conduction disease or whether it is due to AV nessa disease. The patient, at present, is not a candidate for EP studies. Also, if the patient did have syncope, then he would clearly need a permanent pacemaker without any EP studies. Hence, would recommend that the patient have a 30-day event monitor. 4. RIGHT LOWER LOBE PNEUMONIA. Improving on antibiotics. 5. RHABDOMYOLYSIS. At present, improving. The rhabdomyolysis is secondary to the patient's fall and lying on the ground for a long time. 6. DYSPHAGIA, STATUS POST PEG TUBE PLACEMENT. 7. DEHYDRATION. 8. MALNUTRITION, SEVERE. 9. 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 RECOMMENDATIONS: Will continue current treatment. Note that with a small dose of Cardizem, the patient becomes bradycardic; hence, will hold off and watch to see if the patient goes into Afib again. If the patient has tachy-kaiser syndrome, then one has to consider a permanent pacemaker to help maintain the heart rate in view of instituting an AV or SA nessa blocking agent. Note, would recommend that the patient, after discharge, have a 30-day event monitor placed to see if the patient did really have syncope, in which case, in view of the trifascicular block, would merit having a permanent pacemaker placed. If the patient does not have any recurrent syncope or syncope on the 30-day event monitor, then would need an EP study to differentiate between AV nessa disease versus *------* conduction system disease. Note, at present, the patient is not a candidate for this. Will discuss with the patient's son. Note, his medications have been reviewed. Note, 40 minutes spent on this patient, with more than 50% of the time spent on direct patient care. At present, would hold off on any AV or SA nessa blocking agents. Note, medical decision-making is of high complexity. DICTATING PHYSICIAN: CHEVY SALINAS M.D. [id number] PHY#: [id number] ID: [id number] JOB#: [id number] ACCT: [id number] cc: >
[2017-11-11] MEDS: ACETAMINOPHEN 325 MG TABLET PO PRN (20:01)
[2017-11-12 07:52] LABS: ABSOLUTE BASOPHILS # (AUTO) 0.1 10^3/uL (0.0-0.2); ABSOLUTE EOSINOPHILS # (AUTO) 0.2 10^3/uL (0.0-0.6); ABSOLUTE MONOCYTES (AUTO) 0.8 10^3/uL (0.1-1.4); BASOPHILS % (AUTO) 0.8 % (0-2); EOSINOPHILS % (AUTO) 3.2 % (0-6); HEMOGLOBIN 11.4 g/dL (13.5-17.0); LYMPHOCYTES % (AUTO) 14.1 % (13-45); MEAN CORPUSCULAR HEMOGLOBIN 32.4 pg (27.0-33.4); MEAN CORPUSCULAR HGB CONC 33.6 g/dL (32.0-36.0); MEAN CORPUSCULAR VOLUME 96 fl (80-97); MONOCYTES % (AUTO) 11.5 % (3-13); PLATELET COUNT 436 10^3/uL (150-450); RED BLOOD COUNT 3.53 10^6/uL (4.35-5.55); RED CELL DISTRIBUTION WIDTH 13.9 % (11.5-14.0); SEGMENTED NEUTROPHILS % (AUTO) 70.4 % (42-78); TOTAL CELLS COUNTED % (AUTO) 100 %; WHITE BLOOD COUNT 7.1 10^3/uL (4.0-10.5)
[2017-11-12] MEDS: PANTOPRAZOLE SODIUM 40 MG VIAL IV SCH (10:12)
[2017-11-12] MEDS: ENOXAPARIN SODIUM INJ 40 MG/0.4 ML DISP.SYRIN SUBCUT SCH (10:12)
--- NOTE | 2017-11-12 12:49 | PDOC PROGRESS REPORT ---
Subjective Progress Note for:: 11/12/17 Subjective:: Mr. Shah is doing very well today. I spoke with him today about his care. We discussed about his aspiration pneumonia and his dysphagia. We have discussed about his PEG tube today. We discussed about him going to a nursing facility for short-term. He is in agreement. We discussed about the fact that I stop his antibiotics and he remains afebrile and his white count is currently within normal limits. We discussed about the fact that due to his dysphagia he might have been having recurrent aspiration pneumonia. His PEG tube feeding has been going well without any issues at this time. Reason For Visit: RHABDOMYOLYSIS,DEHYDRATION,FALLWITH PROLONGED DOWN Physical Exam Vital Signs: Temp Pulse Resp BP Pulse Ox 97.4 F 69 20 135/59 H 95 11/12/17 10:53 11/12/17 10:53 11/12/17 10:53 11/12/17 10:53 11/12/17 10:53 Intake & Output 11/11/17 11/12/17 11/13/17 06:59 06:59 06:59 Intake Total 530 393 Output Total 0 Balance 530 393 0 Weight 166 lb 0.129 oz 160 lb 14.999 oz General appearance: PRESENT: no acute distress, thin - Cachectic Head exam: PRESENT: atraumatic, normocephalic Eye exam: PRESENT: EOMI. ABSENT: conjunctival injection, scleral icterus Ear exam: PRESENT: normal external ear exam Mouth exam: PRESENT: moist, neck supple Teeth exam: PRESENT: poor dentation Neck exam: ABSENT: JVD, tenderness Respiratory exam: PRESENT: clear to auscultation hua, symmetrical Cardiovascular exam: PRESENT: RRR, +S1, +S2 GI/Abdominal exam: PRESENT: normal bowel sounds, soft. ABSENT: tenderness Extremities exam: ABSENT: joint swelling, pedal edema Musculoskeletal exam: ABSENT: tenderness Neurological exam: PRESENT: alert, awake, oriented to person, oriented to place , CN II-XII grossly intact Skin exam: PRESENT: dry, skin tears - And ecchymosis throughout skin, warm Results Laboratory Results: 11/12/17 04:05 11/10/17 06:00 11/12/17 04:05 WBC 7.1 RBC 3.53 L Hgb 11.4 L Hct 34.0 L MCV 96 MCH 32.4 MCHC 33.6 RDW 13.9 Plt Count 436 Seg Neutrophils % 70.4 Lymphocytes % 14.1 Monocytes % 11.5 Eosinophils % 3.2 Basophils % 0.8 Absolute Neutrophils 5.0 Absolute Lymphocytes 1.0 Absolute Monocytes 0.8 Absolute Eosinophils 0.2 Absolute Basophils 0.1 11/02/17 11/03/17 11/04/17 04:09 05:30 05:08 Creatine Kinase 2865 H 980 H 515 H Troponin I NT-Pro-B Natriuret Pep 11/09/17 11/09/17 11/09/17 03:55 03:55 23:56 Creatine Kinase 104 Troponin I 0.054 NT-Pro-B Natriuret Pep 2650 H 11/10/17 11/11/17 06:00 10:53 Creatine Kinase Troponin I 0.227 0.079 NT-Pro-B Natriuret Pep 1840 H Impressions: Gastrostomy Tube Placement 11/03/17 00:00 IMPRESSION: Successful fluoroscopic guided placement of a Dobhoff tube. Head MRI 11/03/17 00:00 IMPRESSION: Involutional changes of aging with chronic microvascular ischemia and no acute intracranial imaging findings. EVIDENCE OF ACUTE STROKE: No Modified Barium Swallow 11/03/17 00:00 IMPRESSION: LARYNGEAL PENETRATION AND ASPIRATION OF ALL CONSISTENCIES.PLEASE SEE SPEECH PATHOLOGIST REPORT FOR OTHER FINDINGS AND RECOMMENDATIONS. Guidance Fluoroscopy 11/07/17 00:00 IMPRESSION: Successful fluoroscopic guided placement of a [place] tube. Head CT 11/09/17 00:00 IMPRESSION: MILD CHRONIC CHANGES OF ATROPHY AND MICROVASCULAR ISCHEMIA. NO ACUTE PROCESS. No interval change since the recent study. EVIDENCE OF ACUTE STROKE: NO. Chest X-Ray 11/11/17 00:00 IMPRESSION: Partial clearing of the right lower lobe pneumonia compared to previous studies. No other focal infiltrates. Assessment & Plan - Diagnosis (1) Dysphagia causing pulmonary aspiration with swallowing Is this a current diagnosis for this admission?: Yes (2) Right lower lobe pneumonia Qualifiers: Pneumonia type: aspiration pneumonia Is this a current diagnosis for this admission?: Yes (3) Confusion Is this a current diagnosis for this admission?: Yes (4) Fall at home Qualifiers: Encounter type: initial encounter Qualified Code(s): W19.XXXA - Unspecified fall, initial encounter; Y92.009 - Unspecified place in unspecified non-institutional (private) residence as the place of occurrence of the external cause; Y92.009 - Unspecified place in unspecified non-institutional ( private) residence as the place of occurrence of the external cause Is this a current diagnosis for this admission?: Yes (5) Rhabdomyolysis Qualifiers: Rhabdomyolysis type: non-traumatic Qualified Code(s): M62.82 - Rhabdomyolysis Is this a current diagnosis for this admission?: Yes - Time Time Spent with patient: 25-34 minutes - Plan Summary Plan Summary: Patient seen on rounds this morning and is doing well. His PEG tube was placed 3 days ago and he has been started on tube feeds. Medications were consulted and are on board. He seems to be in good health today. I have stopped his antibiotics a few days ago and so far he remains afebrile. At this time I think he may be ready to go for SNF. I have ordered for an echo tomorrow morning due to his atrial fibrillation with the recommendations of cardiology. I have also changed his IV Protonix to Pepcid p.o. twice daily at this time. Patient was also evaluated by cardiology due to elevated troponin and found to be in atrial fibrillation. He received IV Cardizem and cardiology was consulted. I appreciate assistance from cardiology. As per cardiology note his elevated troponin was secondary to his A. fib, dehydration, pneumonia and rhabdo. At this time he is in sinus rhythm seen on EKG. Cardiology did not recommend any kind of anticoagulation at this time. He is on Lovenox for DVT prophylaxis. There is some concern whether patient had a true syncope are not and if it is then he would require permanent pacemaker without any P studies since he is not a candidate.
--- NOTE | 2017-11-12 15:20 | PROGRESS NOTE E ---
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 The patient denies any chest pain or discomfort. There is no PND or orthopnea. The patient has converted to sinus rhythm, but his heart rate is in the 60s. He denies any chest pain or discomfort. There is no PND or orthopnea. The patient seems to be oriented to person and place, but not to time. There is no PND or orthopnea. The patient denies any cough. There is no ventricular arrhythmia seen on the monitor. OBJECTIVE: GENERAL: The patient is nauseated and malnourished and chronically ill. Appears to be older than his stated age. VITAL SIGNS: He is afebrile, with a temperature of 98.1 degrees Fahrenheit. His pulse is 67 beats per minute, blood pressure 132/66, respirations 16 per minute, O2 sats are 96% on room air. HEENT: Head is atraumatic, normocephalic. Eyes: Pupils are equal, round, regular, reactive to light and accommodation. Extraocular movements are normal. There is no conjunctival pallor. ENT is negative. Mucous membranes are still dry of the mouth and the tongue is also dry. There are no ulcers. NECK: Supple. There is no JVD. Carotids are equal. There is a faint bruit bilaterally. He has a right carotid endarterectomy scar present. There is no lymphadenopathy. There is no goiter. Trachea is central. LUNGS: Show dry crackles at the right base. There are no rales of CHF. CHEST: There is no chest wall tenderness. HEART: S1, S2 are heard. There is no S3 gallop. There is no S4 gallop. There is a systolic murmur at the left sternal border, at the apex. There is no rub. S1 is of normal intensity. ABDOMEN: Soft. There is a PEG tube in-situ. Dressing around it is dry. There is no hepatosplenomegaly. Bowel sounds are well-heard. There are no tender areas. No masses. There is no rebound, guarding or rigidity. EXTREMITIES: Femorals are diminished. There are no femoral bruits. Leg pulses are diminished. There is no pedal edema. There is no DVT or cellulitis. There is no calf tenderness. SHOT HOLE SHOOTER: The patient is conscious, awake, oriented to person and place, but not to time. There is mild left-sided weakness present. PSYCHIATRIC: The patient does not appear to be agitated or anxious. Full psychiatric exam not obtained. DIAGNOSTICS: The patient's white count is 7100, hemoglobin is 7.4, hematocrit is 34 and the platelet count is 436,000. There is no chemistry obtained today. IMPRESSION: 1. ELEVATED TROPONIN I, SECONDARY TO PAROXYSMAL ATRIAL FIBRILLATION, DEHYDRATION, PNEUMONIA AND RHABDOMYOLYSIS. No evidence of non-ST elevation HI. 2. PAROXYSMAL ATRIAL FIBRILLATION. At present, in sinus. 3. TRIFASCICULAR BLOCK, FIRST-DEGREE AV BLOCK AND RIGHT BUNDLE BRANCH BLOCK PATTERN, AND LEFT ANTERIOR FASCICULAR BLOCK PATTERN. No definite history of syncope. Upon repeat questioning of the patient, he states that he slipped and fell and could not get up, but there was no loss of consciousness. Note that the patient at that time was not very lucid in his thoughts. In view of the patient's heart rate being in the 60s, in spite of occasional paroxysmal atrial fibrillation, would not institute any SA or AV nessa blocking agents, in view of the trifascicular block. Would recommend that the patient have a 30-day event monitor. 4. RIGHT LOWER LOBE PNEUMONIA, IMPROVING ON ANTIBIOTICS. 5. RHABDOMYOLYSIS. At present, improving. The rhabdomyolysis is secondary to patient's fall and lying on the ground for a long time. 6. DYSPHAGIA, STATUS POST PEG TUBE PLACEMENT. 7. DEHYDRATION. 8. SEVERE MALNUTRITION. 9. 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 10. SYSTOLIC MURMUR, QUESTION SIGNIFICANT MITRAL REGURG. RECOMMENDATIONS: As mentioned earlier, in view of the patient's trifascicular block and the patient's heart rate being in the 60s, in spite of paroxysmal atrial fibrillation, would not recommend treating it with SA or AV nessa blocking agents. Also, would get a 30-day event monitor to see if there is any advanced AV block or if the patient has recurrent atrial fibrillation. If the patient's rapid atrial fibrillation recurs, then he would quality for a pacemaker, in view of the patient's trifascicular block, with the heart rate being in the 60s, which would preclude treatment of the patient with AV or SA nessa blocking agents. Would also, as mentioned earlier, get a 30-day event monitor; this can be done as an outpatient. Would not recommend a stress test, as the patient, in my opinion, is not a candidate for very aggressive treatment, such as cardiac catheterization or percutaneous revascularization or coronary artery bypass graft surgery unless miraculously the patient's malnutrition is reversed and the patient's general condition becomes much improved. Would also recommend getting an echocardiogram in the morning to assess the patient's mitral regurgitation murmur and to see the LV ejection fraction, in view of the patient's atrial fibrillation and trifascicular block. As mentioned earlier, the patient is not a candidate for chronic anticoagulation in view of the falls and in view of the patient's advanced age and severe malnutrition. He is at high risk for bleeding complications from chronic anticoagulation. Note, his medications have been reviewed. Would continue current medications. No changes made. I discussed the medical management and treatment of the patient with the hospitalist concerned. Will try to talk to the patient's son, who is an chief technician x ray, and also who is the surrogate power of deputy prosecuting attorney for the patient's health. Medical decision-making is of moderate to high complexity. Note, 35 minutes were spent on this patient, with more than 50% of the time spent on direct patient care. Will follow with you. Thank you. DICTATING PHYSICIAN: CHEVY SALINAS M.D. [id number] PHY#: [id number] ID: [id number] JOB#: [id number] ACCT: [id number] cc: >
[2017-11-12] MEDS: FAMOTIDINE 20 MG TABLET NG SCH (17:54)
[2017-11-13] MEDS: FAMOTIDINE 20 MG TABLET NG SCH ×2 (05:38→18:39)
[2017-11-13] MEDS: ENOXAPARIN SODIUM INJ 40 MG/0.4 ML DISP.SYRIN SUBCUT SCH (10:40)
--- NOTE | 2017-11-13 14:40 | PROGRESS NOTE E ---
Progress Note NAME: JAIME JOHNSTON : 1930 AGE: 87Y DATE: 11/13/2017 ROOM: 305 SUBJECTIVE: The patient seems to be slightly stronger. He is on PEG tube feeding. He is now in sinus rhythm with the monitor showing bifascicular first AV block and right bundle branch block pattern. The patient denies any chest pain or discomfort. The patient appears to be oriented times person and place but not time. There is no PND or orthopnea. There is no *------* sensation. There is no ventricular arrhythmia. There is no pedal edema. This is no PND, orthopnea or shortness of breath. He denies any cough. There is no ventricular arrhythmia seen on the monitor. OBJECTIVE: GENERAL: The patient appears to be emaciated and malnourished and chronically ill. He appears to be older than his stated age. VITAL SIGNS: He is afebrile, with a temperature of 98.2 degrees Fahrenheit. His pulse is 76 beats per minute, blood pressure 130/51, respirations 20 per minute, O2 sats are 94% on room air. Note that the patient's pulse rate was sometimes into the low 60s with a stable blood pressure. HEENT: Head is atraumatic, normocephalic. Eyes: Pupils are equal, round, regular, reactive to light and accommodation. Extraocular movements are normal. There is no conjunctival pallor. ENT is negative. NECK: Supple. There is no JVD. Carotids are equal. There is a faint bilateral bruit present. He has a right carotid endarterectomy scar present. There is no lymphadenopathy. There is no goiter. Trachea is central. LUNGS: Show dry crackles at the right base. There are no rales of CHF. HEART: S1, S2 are heard. There is no S3 gallop. There is no S4 gallop. S1 is of normal intensity. There is a systolic murmur at the left sternal border, at the apex. There is no rub. ABDOMEN: Soft. There is a PEG tube in-situ. Dressing is dry. There is no hepatosplenomegaly. Bowel sounds are well-heard. There are no tender areas or masses. There is no rebound, guarding or rigidity. EXTREMITIES: Femorals are diminished. There are no femoral bruits. Leg pulses are diminished. There is no pedal edema. There is no DVT or cellulitis. COATINGS INSPECTOR: The patient is conscious, awake, alert, oriented x2. Oriented to person and place, but not to time. There is mild left-sided weakness. PSYCHIATRIC: The patient does not appear to be agitated or anxious. Full psychiatric exam not done. Note that the patient's echo suboptimal study in limited view seen with a *------* probably low/normal but cannot be sure about this. The patient's troponin I has trended down to 0.079 on 11/11. IMPRESSION: 1. ELEVATED TROPONIN I, SECONDARY TO PAROXYSMAL ATRIAL FIBRILLATION, DEHYDRATION, PNEUMONIA AND RHABDOMYOLYSIS. No evidence of non-ST elevation SC. 2. PAROXYSMAL ATRIAL FIBRILLATION. At present, in sinus. 3. TRIFASCICULAR BLOCK WITH FIRST-DEGREE AV BLOCK AND RIGHT BUNDLE BRANCH BLOCK PATTERN, AND LEFT ANTERIOR FASCICULAR BLOCK PATTERN. Appears to be stable. No syncope. The patient not a candidate for extensive EP studies. 4. RIGHT LOWER LOBE PNEUMONIA, IMPROVING ON ANTIBIOTICS. 5. RHABDOMYOLYSIS. 6. DYSPHAGIA, STATUS POST PEG TUBE PLACEMENT. 7. DEHYDRATION. 8. SEVERE MALNUTRITION. 9. 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 10. SUBOPTIMAL ECHO. CANNOT QUANTIFY THE SIGNIFICANCE OF MITRAL REGURGITATION IN THIS PATIENT. RECOMMENDATIONS: As mentioned earlier, patient not a candidate for long-term anticoagulation treatment in view of the patient's debilitated state and history of fall. Will try to get a 30-day event monitor. Will talk to his son, Dr. Favian Johnston, Health And Wellness Coach. Echo findings discussed with the patient although no meaningful interposition can be made except for what is said about. Note, medical decision-making is of moderate complexity. Note, 30 minutes spent on patient with more than 50% of the time spent on direct patient care. Note that the patient is a FULL CODE. His son is his surrogate healthcare decision-maker. DICTATING PHYSICIAN: CHEVY SALINAS M.D. [id number] HIMA#: [id number] ID: [id number] JOB#: [id number] ACCT: [id number] cc: >
--- NOTE | 2017-11-13 15:33 | PDOC PROGRESS REPORT ---
Subjective Progress Note for:: 11/13/17 Subjective:: He has no acute complaints today. I had a discussion with him about his care again. We discussed about his tube feeds and that is going well-but he still not at goal yet. He has no new acute complaints at this time. Reason For Visit: RHABDOMYOLYSIS,DEHYDRATION,FALLWITH PROLONGED DOWN Physical Exam Vital Signs: Temp Pulse Resp BP Pulse Ox 98.2 F 76 20 130/51 H 94 11/13/17 12:02 11/13/17 12:02 11/13/17 12:02 11/13/17 12:02 11/13/17 12:02 Intake & Output 11/12/17 11/13/17 11/14/17 06:59 06:59 06:59 Intake Total 393 945 0 Output Total 0 Balance 393 945 0 Weight 160 lb 14.999 oz 158 lb 4.67 oz General appearance: PRESENT: no acute distress, thin - Cachectic Head exam: PRESENT: atraumatic, normocephalic Eye exam: PRESENT: EOMI. ABSENT: conjunctival injection, scleral icterus Ear exam: PRESENT: normal external ear exam Mouth exam: PRESENT: moist, neck supple Neck exam: ABSENT: JVD, tenderness Respiratory exam: PRESENT: clear to auscultation hua, symmetrical Cardiovascular exam: PRESENT: +S1, +S2 Pulses: PRESENT: +2 pedal pulses bilateral GI/Abdominal exam: PRESENT: normal bowel sounds, soft. ABSENT: tenderness Extremities exam: ABSENT: joint swelling, pedal edema Musculoskeletal exam: ABSENT: tenderness Neurological exam: PRESENT: alert, awake, oriented to person, oriented to place , CN II-XII grossly intact Skin exam: PRESENT: dry, petechiae, skin tears, warm Results Laboratory Results: 11/12/17 04:05 11/10/17 06:00 11/02/17 11/03/17 11/04/17 04:09 05:30 05:08 Creatine Kinase 2865 H 980 H 515 H Troponin I NT-Pro-B Natriuret Pep 11/09/17 11/09/17 11/09/17 03:55 03:55 23:56 Creatine Kinase 104 Troponin I 0.054 NT-Pro-B Natriuret Pep 2650 H 11/10/17 11/11/17 06:00 10:53 Creatine Kinase Troponin I 0.227 0.079 [facility] H Impressions: Gastrostomy Tube Placement 11/03/17 00:00 IMPRESSION: Successful fluoroscopic guided placement of a Dobhoff tube. Head MRI 11/03/17 00:00 IMPRESSION: Involutional changes of aging with chronic microvascular ischemia and no acute intracranial imaging findings. EVIDENCE OF ACUTE STROKE: No Modified Barium Swallow 11/03/17 00:00 IMPRESSION: LARYNGEAL PENETRATION AND ASPIRATION OF ALL CONSISTENCIES.PLEASE SEE SPEECH PATHOLOGIST REPORT FOR OTHER FINDINGS AND RECOMMENDATIONS. Guidance Fluoroscopy 11/07/17 00:00 IMPRESSION: Successful fluoroscopic guided placement of a [place] tube. Head CT 11/09/17 00:00 IMPRESSION: MILD CHRONIC CHANGES OF ATROPHY AND MICROVASCULAR ISCHEMIA. NO ACUTE PROCESS. No interval change since the recent study. EVIDENCE OF ACUTE STROKE: NO. Chest X-Ray 11/11/17 00:00 IMPRESSION: Partial clearing of the right lower lobe pneumonia compared to previous studies. No other focal infiltrates. Assessment & Plan - Diagnosis (1) Dysphagia causing pulmonary aspiration with swallowing Is this a current diagnosis for this admission?: Yes (2) Right lower lobe pneumonia Qualifiers: Pneumonia type: aspiration pneumonia Is this a current diagnosis for this admission?: Yes (3) Confusion Is this a current diagnosis for this admission?: Yes (4) Fall at home Qualifiers: Encounter type: initial encounter Qualified Code(s): W19.XXXA - Unspecified fall, initial encounter; Y92.009 - Unspecified place in unspecified non-institutional (private) residence as the place of occurrence of the external cause; Y92.009 - Unspecified place in unspecified non-institutional ( private) residence as the place of occurrence of the external cause Is this a current diagnosis for this admission?: Yes (5) Rhabdomyolysis Qualifiers: Rhabdomyolysis type: non-traumatic Qualified Code(s): M62.82 - Rhabdomyolysis Is this a current diagnosis for this admission?: Yes - Time Time Spent with patient: 15-24 minutes Medications reviewed and adjusted accordingly: Yes Anticipated discharge: SNF Within: within 48 hours - Plan Summary Plan Summary: Cardiology already evaluated patient for his elevated troponin which shows no evidence of NSTEMI. He likely has proximal atrial fibrillation and is not a candidate for extensive EP studies. His cardiovascular symptoms were likely due to his pneumonia and rhabdomyolysis. Echocardiogram was ordered by cardiology and is pending a final result. Today he is doing very well and alert and oriented 3. He tells me that he has no complaints. I discussed about his aspiration pneumonia and his dysphagia. I told him that he may need further studies to figure out why he has dysplasia. We also discussed about PEG tube feeding. Currently he is not at goal which is 65 cc an hour. We will continue to go up as per nutrition/dietitian recommendations. Once cardiology has cleared him and he is at goal for PEG tube feeds he will be discharged to SNF.
--- NOTE | 2017-11-13 19:23 | XCELERA REPORT ---
[address] [address] Transthoracic Echocardiogram Report Name: JAIME JOHNSTON Age: 87 yrs Gender: Male : 1930 Patient Status: Inpatient Patient Location: [address] [place], [place] [address] Study Date: 11/13/2017 09:38 AM Height: 74 in Weight: 160 lb BSA: 2.0 m2 Procedure: A two-dimensional transthoracic echocardiogram with color flow Doppler was performed. Study Quality: Technically suboptimal. Poor endocardial visualisation of lilited [place].Poor valvular interogation , hence cannot comment on valves. Reason For Study: CHF / MR History: CHF / MR. Ordering Physician: ESTELLA SALINAS Performed By: Shayla Lauren Interpretation Summary The anteroseptum and posterior wall and mid LV [place] show probably mild hypokinesis with LVEF of 45% to 50% , which is mildly reduced LVEF.Rest of LV [place] not visualised. There is Aortic Sclerosis without Aortic Stenosis..No other interpretation on valves. MMode/2D Measurements & Calculations IVSd: 0.98 cm LVIDd: 4.9 cm FS: 14.6 % Ao root diam: 3.4 cm LVIDs: 4.2 cm EDV(Teich): 111.4 ml LVPWd: 0.99 cm ESV(Teich): 76.9 ml Ao root area: 8.9 cm2 EF(Teich): 31.0 % LA dimension: 3.5 cm Doppler Measurements & Calculations MV E max robert: MV P1/2t max robert: Ao V2 max: 73.5 cm/sec 73.5 cm/sec 89.6 cm/sec MV A max robert: MV P1/2t: 80.5 msec Ao max P.2 mmHg 53.8 cm/sec MV E/A: 1.4 MVA(P1/2t): 2.7 cm2 MV dec slope: 267.5 cm/sec2 MV dec time: 0.29 sec Left Ventricle The anteroseptum and posterior wall and mid LV [place] show probably mild hypokinesis with LVEF of 45% to 50% , which is mildly reduced LVEF.Rest of LV [place] not visualised. There is Aortic Sclerosis without Aortic Stenosis..No other interpretation on valves. : ESTELLA SALINAS > Estella Salinas
[2017-11-14] MEDS: FAMOTIDINE 20 MG TABLET NG SCH ×2 (05:28→17:08)
[2017-11-14 05:35] LABS: HEMATOCRIT 34.1 % (37.9-51.0); HEMOGLOBIN 11.6 g/dL (13.5-17.0); MEAN CORPUSCULAR HEMOGLOBIN 32.6 pg (27.0-33.4); MEAN CORPUSCULAR VOLUME 96 fl (80-97); PLATELET COUNT 476 10^3/uL (150-450); RED BLOOD COUNT 3.55 10^6/uL (4.35-5.55); RED CELL DISTRIBUTION WIDTH 13.8 % (11.5-14.0); WHITE BLOOD COUNT 7.6 10^3/uL (4.0-10.5)
[2017-11-14 06:03] LABS: ALANINE AMINOTRANSFERASE 31 U/L (21-72); ALBUMIN 3.1 g/dL (3.5-5.0); ALKALINE PHOSPHATASE 48 U/L (38-126); ANION GAP 10 (5-19); ASPARTATE AMINO TRANSFERASE 27 U/L (17-59); BILIRUBIN,DIRECT 0.4 mg/dL (0.0-0.4); BILIRUBIN,TOTAL 0.4 mg/dL (0.2-1.3); BLOOD UREA NITROGEN 30 mg/dL (7-20); CALCIUM 9.2 mg/dL (8.4-10.2); CARBON DIOXIDE 34 mmol/L (22-30); CHLORIDE 104 mmol/L (98-107); GLUCOSE 131 mg/dL (75-110); LIPASE 178.3 U/L (23-300); POTASSIUM 4.6 mmol/L (3.6-5.0); SODIUM 147.5 mmol/L (137-145)
--- NOTE | 2017-11-14 08:19 | CONSULTATION REPORT E ---
Consultation Report NAME: JAIME JOHNSTON : 1930 AGE: 87Y DATE: 11/10/2017 305 A TO: CHEVY SALINAS M.D. FROM: GARRISON DILLON M.D. Requesting Physician The patient is seen at 1:00 p.m. today. History obtained from the patient and from the chart. REASON FOR CONSULTATION: New onset atrial fibrillation with bradycardia secondary to IV Cardizem and p.o. Cardizem. HISTORY: The patient is an 87-year-old male with a past history of CVA, who states that he fell at home and subsequently was not able to get up, and was admitted with rhabdomyolysis. He also failed a swallow test, and he has a PEG tube placed. Last night, the patient went into atrial fibrillation. He was given Cardizem 5 mg IV push, and also through the PEG tube 30 mg of Cardizem was given. His heart rate came down to 55. The patient denies any chest pain or discomfort. There is no PND or orthopnea. There is no recurrence of CVA. The patient denies history of coronary artery disease. He denies any past history of atrial fibrillation, but with the history of CVA in the past, most likely the patient has had latent or undiagnosed paroxysmal atrial fibrillation. The patient is asymptomatic from his atrial fibrillation and does not have palpitations. He has a past medical history positive for history of CVA with left-sided weakness. He walks with a walker. He has had hypercholesterolemia and has a history of depression. There is no history of hypertension or diabetes mellitus. No history of chronic kidney disease. PAST SURGICAL HISTORY: Positive for laser surgery and abdominal surgery. SOCIAL HISTORY: The patient is a former smoker. He does not smoke anymore. DISPOSITION: The patient is full code. His son, Dr. Johnston, is the surrogate healthcare decision maker. ALLERGIES: NO KNOWN ALLERGIES. MEDICATIONS: As per MAR. REVIEW OF SYSTEMS: GENERAL: Denies headache or head injury. Complains of generalized fatigue and weakness. CONSTITUTIONAL: The patient is severely dehydrated. He has generalized weakness and fatigue. There is no fever, chills, or rigors. HEENT: No history of amblyopia or diplopia. No history of amaurosis fugax. Ears: No history of tinnitus. There is a history of hearing loss. Nose: No history of hay fever. No history of nosebleeds. Mouth: No altered taste sensation. No ulcers in the mouth. Throat: No odynophagia. The patient has dysphagia and has probably had aspiration pneumonia. The patient has no recurrent sore throats. The patient has a PEG tube. SKIN: No pruritus, no ecchymosis. No yellowish discoloration of the skin. NECK: No history of neck pain. No lymphadenopathy. No goiter. LUNGS: No history of asthma, COPD. The patient does have pneumonia of the right lower lobe, most likely secondary to aspiration due to his dysphagia. He has no history of sleep apnea, no pulmonary embolism. CARDIAC: No history of hypertension. No history of coronary artery disease. Question new onset atrial fibrillation, probably cannot exclude undiagnosed paroxysmal atrial fibrillation in view of the patient's CVA. The patient did have vascular surgery in the form of right carotid surgery in the past. This may just be new onset. There is no PND or orthopnea. The patient walks with a walker. Recently, the patient has been short of breath with minimal activity. This may be because the patient is severely dehydrated. METABOLIC: The patient is severely dehydrated. The patient is unable to take fluids. Hence, the patient has a PEG tube. RENAL: No past history of chronic kidney disease. No hematuria, pyuria, or dysuria. GASTROINTESTINAL: No history of GI disease. History of dysphagia present. The patient failed a swallow test. END OF DICTATION DICTATING PHYSICIAN: CHEVY SALINAS M.D. [id number] Y#: [id number] ID: [id number] JOB#: [id number] ACCT: [id number] cc:CHEVY SALINAS M.D. >
[2017-11-14] MEDS ORDERED: LANSOPRAZOLE 15 MG TAB.RAP.DR PEG ONE (09:00)
[2017-11-14] MEDS: ENOXAPARIN SODIUM INJ 40 MG/0.4 ML DISP.SYRIN SUBCUT SCH (09:07)
[2017-11-14] MEDS: LACTOBACILLUS ACIDOPHILUS 250 MG TAB PEG SCH ×2 (09:07→17:08)
[2017-11-14] MEDS ORDERED: ASPIRIN 81 MG TABLET, CHEWABLE PEG SCH (10:00)
[2017-11-14] MEDS ORDERED: RAMIPRIL 2.5 MG CAPSULE PEG SCH (10:00)
[2017-11-14] MEDS ORDERED: ASPIRIN/DIPYRIDAMOLE 25-200 MG 1 CAP.SR CPMP.12HR PO SCH (10:00)
[2017-11-14] MEDS ORDERED: LACTULOSE SYRUP 20 GM/30 ML UDCUP PEG SCH ×2 (10:45→18:00)
[2017-11-14] MEDS ORDERED: LACTULOSE SYRUP 20 GM/30 ML UDCUP PEG ONE (12:00)
--- NOTE | 2017-11-14 13:19 | PDOC TRANSFER SUMMARY ---
General - Admit/Disc Date/PCP Admission Date/Primary Care Provider: 11/01/17 18:33 KEVIN LE MD Discharge Date: 11/14/17 - Discharge Diagnosis (1) Confusion Is this a current diagnosis for this admission?: Yes Summary: Metabolic encephalopathy due to pneumonia. (2) Dysphagia causing pulmonary aspiration with swallowing Is this a current diagnosis for this admission?: Yes (3) Fall at home Is this a current diagnosis for this admission?: Yes (4) Nutrition deficiency due to insufficient food Is this a current diagnosis for this admission?: Yes (5) Rhabdomyolysis Is this a current diagnosis for this admission?: Yes (6) Right lower lobe pneumonia Is this a current diagnosis for this admission?: Yes - Additional Information Resuscitation Status: Full Code Home Medications: Latanoprost [Xalatan 0.005% Oph Soln 2.5 ml] 1 drop OU QHS 11/01/17 Acetaminophen [Tylenol 325 mg Tablet] 650 mg PO Q8HP PRN tablet 11/14/17 Aspirin [Aspirin 81 mg Chewable Tablet] 324 mg PEG DAILY tab.chew 11/14/17 Lactobacillus Acidophilus [Bacid 250 mg Tablet] 500 mg PEG BID tab 11/14/17 Lactulose [Cephulac Syrup 20 gm/30 ml Udcup] 20 gm PEG BID udc 11/14/17 Lansoprazole [Prevacid 15 mg Odt Tablet] 15 mg PEG Q6AM tab.rap.dr 11/14/17 Ramipril [Altace 2.5 mg Capsule] 2.5 mg PEG DAILY #0 11/14/17 Simvastatin [Zocor 20 mg Tablet] 20 mg PEG QPM #0 11/14/17 History of Present Illness Admission Date/PCP: 11/01/17 18:33 KEVIN LE MD Patient complains of: Fall, confusion History of Present Illness: See below. Hospital Course Hospital Course: The patient is an 87-year-old gentleman with no significant past medical history who was living by himself prior to current admission. His family had noticed that he was getting progressively weaker over the past few months and had hired somebody to check on him on a daily basis. He presented to the hospital on November 01 after being found by his family down on the floor. The last time he was seen normal was 3 days prior to that and nobody had checked on him in the interim. He was diagnosed with rhabdomyolysis and right lower lobe pneumonia which was suspected due to aspiration and he was started on Zosyn and some IV fluids. The patient failed his swallow evaluation including a modified barium swallow study. He was somewhat agitated earlier this week and became progressively more confused which was likely secondary to underlying dementia with a change in his environment. The patient had been started on some low-dose Remeron and a scopolamine patch. However his confusion and agitation worsened so these were stopped. MRI showed chronic changes but nothing acute. Speech therapy evaluation determined at risk for aspiration, a PEG tube was placed. Tube feed rate was slowly advanced and this was tolerated. Speech therapy reevaluation was done today and he is okay for ice chips only with supervision. He has completed a course of antibiotics for his aspiration pneumonia. Stable for discharge. Not requiring oxygen. Discharge follow up: PCP in 1 week Speech therapy and PT OK for ice chips only with supervision PO Tube feeds- Jevity 1.5 at 65cc per hr continuous 300cc water QID via PEG Check for residuals q6H Plan of care was discussed with his son. Physical Exam Vital Signs: Temp Pulse Resp BP Pulse Ox 98.1 F 76 18 106/60 96 11/14/17 12:24 11/14/17 12:24 11/14/17 12:24 11/14/17 12:24 11/14/17 12:24 Intake & Output 11/13/17 11/14/17 11/15/17 06:59 06:59 06:59 Intake Total 945 1604 246 Output Total 0 Balance 945 1604 246 Weight 71.8 kg 74.2 kg General appearance: PRESENT: no acute distress Respiratory exam: PRESENT: symmetrical, unlabored Neurological exam: PRESENT: alert, awake Results Laboratory Results: 11/14/17 05:01 11/14/17 05:01 11/14/17 11/14/17 05:01 05:01 WBC 7.6 RBC 3.55 L Hgb 11.6 L Hct 34.1 L MCV 96 MCH 32.6 MCHC 34.0 RDW 13.8 Plt Count 476 H Sodium 147.5 H Potassium 4.6 Chloride 104 Carbon Dioxide 34 H Anion Gap 10 BUN 30 H Creatinine 0.78 Est GFR ( Amer) > 60 Est GFR (Non-Af Amer) > 60 Glucose 131 H Calcium 9.2 Magnesium 2.5 H Total Bilirubin 0.4 AST 27 ALT 31 Alkaline Phosphatase 48 Total Protein 6.0 L Albumin 3.1 L Lipase 178.3 11/08/17 15:45 Blood Blood Culture - Final NO GROWTH IN 5 DAYS 11/02/17 11/03/17 11/04/17 04:09 05:30 05:08 Creatine Kinase 2865 H 980 H 515 H Troponin I NT-Pro-B Natriuret Pep 11/09/17 11/09/17 11/09/17 03:55 03:55 23:56 Creatine Kinase 104 Troponin I 0.054 NT-Pro-B Natriuret Pep 2650 H 11/10/17 11/11/17 06:00 10:53 Creatine Kinase Troponin I 0.227 0.079 NT-Pro-B Natriuret Pep 1840 H Impressions: Gastrostomy Tube Placement 11/03/17 00:00 IMPRESSION: Successful fluoroscopic guided placement of a Dobhoff tube. Head MRI 11/03/17 00:00 IMPRESSION: Involutional changes of aging with chronic microvascular ischemia and no acute intracranial imaging findings. EVIDENCE OF ACUTE STROKE: No Modified Barium Swallow 11/03/17 00:00 IMPRESSION: LARYNGEAL PENETRATION AND ASPIRATION OF ALL CONSISTENCIES.PLEASE SEE SPEECH PATHOLOGIST REPORT FOR OTHER FINDINGS AND RECOMMENDATIONS. Guidance Fluoroscopy 11/07/17 00:00 IMPRESSION: Successful fluoroscopic guided placement of a [place] tube. Head CT 11/09/17 00:00 IMPRESSION: MILD CHRONIC CHANGES OF ATROPHY AND MICROVASCULAR ISCHEMIA. NO ACUTE PROCESS. No interval change since the recent study. EVIDENCE OF ACUTE STROKE: NO. Chest X-Ray 11/11/17 00:00 IMPRESSION: Partial clearing of the right lower lobe pneumonia compared to previous studies. No other focal infiltrates. Transfer Plan - Time Spent with Patient Time spent with patient: Greater than 30 Minutes Qualifiers - * PATIENT BEING DISCHARGED WITH ANY OF THE FOLLOWING DIAGNOSIS: No
--- NOTE | 2017-11-14 17:35 | PROGRESS NOTE E ---
Progress Note NAME: JAIME JOHNSTON : 1930 AGE: 87Y DATE: 11/14/2017 ROOM: 305 SUBJECTIVE: The patient still seems oriented x2, but appears to be a little more lethargic today. He denies any chest pain or discomfort. There is no cough or wheezing. There is no PND, orthopnea, or leg edema. There are no anginal symptoms. There is no recurrence of atrial fibrillation. There is no new TIA or CVA symptoms since this admission. The patient has a prior history of CVA. OBJECTIVE: GENERAL: The patient appears to be *------*, malnourished, and chronically ill. He appears to be older than his stated age. VITAL SIGNS: He is afebrile. Temperature 98 degrees Fahrenheit. Pulse is 76 beats per minute. Blood pressure 106/60. Respirations 18 per minute. O2 sats are 96% on room air. HEENT: Head is atraumatic/normocephalic. Eyes: Pupils are equal, round, regular, reactive to light and accommodation. Extraocular motions are normal. There is no conjunctival pallor. ENT is negative. NECK: Supple. There is no JVD. Carotids are equal. There are bilateral bruits present. He has a right carotid endarterectomy scar present. There is no lymphadenopathy. There is no goiter. Trachea central. LUNGS: Few dry crackles in the right base, much less than yesterday. No rales are heard. No chest wall tenderness. HEART: S1, S2 heard. There is no S3 gallop. There is no S4 gallop. S1 is of normal intensity. There is a systolic murmur in the left sternal border and the apex. There is no rub. ABDOMEN: Soft. There is a PEG tube. Dressing is dry. There is no hepatosplenomegaly. Bowel sounds are well heard. There are no tender areas or masses. There is no rebound, guarding, or rigidity. EXTREMITIES: Femorals are diminished. There are no femoral bruits. The leg pulses are diminished. There is no pedal edema. There is no DVT or cellulitis. SENIOR PRODUCT DEVELOPMENT SCIENTIST: The patient is conscious, slightly drowsy today but he is oriented to person, place, but not time. There is mild left-sided weakness. PSYCHIATRIC: The patient does not appear to be agitated or depressed. The patient's white count is 9600, hemoglobin 11.6, hematocrit 34.1, platelets 176,000. The patient's sodium is 137, potassium 4.6, chloride 104, CO2 is 34. The patient's BUN is 30, creatinine 0.78. GFR greater than 60. His glucose is 131. Calcium 9.2. His liver function tests are normal. His magnesium is elevated at 2.5. The patient's total protein is 6. Albumin 3.1. Lipase is 178.3. ASSESSMENT: 1. ELEVATED TROPONIN-I, secondary to paroxysmal atrial fibrillation and dehydration, pneumonia, rhabdomyolysis. No evidence of non-ST elevation myocardial infarction. The troponin has trended down. 2. PAROXYSMAL ATRIAL FIBRILLATION. At present, in sinus. 3. 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 Left trifascicular block pattern appears to be stable. No syncope. The patient is not a candidate for extensive EP studies or cardiac catheterization. 4. RIGHT LOWER LOBE PNEUMONIA, improving on antibiotics. 5. RHABDOMYOLYSIS seems to have resolved. 6. DYSPHAGIA status post percutaneous endoscopic gastrostomy tube placement. 7. DEHYDRATION. The patient appears to be better hydrated now. 8. SEVERE MALNUTRITION. Continue tube feedings. 9. 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 PLAN: Will recommend to get a 30-day event monitor at home. At present, with the heart rate and the patient's trifascicular block in sinus rhythm, may be a problem starting him on a calcium channel agent with AV nessa block properties or beta chandu, or digoxin. Hence, will get a 30-day event monitor to see if the patient does need medication to prevent him from going into paroxysmal atrial fibrillation. His medications have been reviewed. Continue antibiotics. Continue tube feeding. Medical decision making is of moderate complexity. Will sign off the case. Cardiac status is stable. 40 minutes were spent on the patient. More than 50% of the time was spent in direct patient care. DICTATING PHYSICIAN: CHEVY SALINAS M.D. [id number] PHY#: [id number] ID: [id number] JOB#: [id number] ACCT: [id number] cc: >
[2017-11-14 20:38] VITALS: BP 121/62
[2017-11-14] MEDS ORDERED: LATANOPROST 0.005% OPH SOLN 2.5 ML OU SCH (22:00)
[2017-11-14] MEDS ORDERED: SIMVASTATIN 10 MG TABLET PEG SCH (22:00)
[2017-11-15] MEDS ORDERED: LANSOPRAZOLE 15 MG TAB.RAP.DR PEG SCH (06:00)
== END 2017-11-14 20:50 | DRG 177 ==
LOC: ER 15:06 → EH 18:33 → 4N 21:09 → 3N 11-10 08:48
PROVIDERS: ADMIT Internal Medicine; ATTEND Internal Medicine
PROC: 0DH67UZ Insertion of Feeding Device into Stomach, Via Natural or Artificial Opening (ICD-10-PCS; 2017-11-03)
PROC: 0DH63UZ Insertion of Feeding Device into Stomach, Percutaneous Approach (ICD-10-PCS; principal; 2017-11-09 16:00)
DX: J69.0 Pneumonitis due to inhalation of food and vomit (principal); G93.41 Metabolic encephalopathy; E43 Unspecified severe protein-calorie malnutrition; M62.82 Rhabdomyolysis; I69.354 Hemiplegia and hemiparesis following cerebral infarction affecting left non-dominant side; I45.3 Trifascicular block; R13.10 Dysphagia, unspecified; W19.XXXA Unspecified fall, initial encounter; Y93.9 Activity, unspecified; Y92.009 Unspecified place in unspecified non-institutional (private) residence as the place of occurrence of the external cause; Y99.9 Unspecified external cause status; I48.0 Paroxysmal atrial fibrillation; E86.0 Dehydration; E78.5 Hyperlipidemia, unspecified; F32.9 Major depressive disorder, single episode, unspecified; Z79.82 Long term (current) use of aspirin; Z79.899 Other long term (current) drug therapy; Z87.891 Personal history of nicotine dependence
CPT/HCPCS: 00731; 36415; 43246; 44500; 51702; 70450; 70551; 71045; 74230; 74340; 80048; 80053; 81001; 82550; 82553; 83605; 83690; 83735; 83880; 84100; 84484; 85025; 85027; 87040; 93005; 93010; 93306; 94660; 96360; 99285; G8978-GP; G8979-GP; G8996-GN; G8997-GN; J0456; J0696; J1650; J1885; J1940; J2250; J2543; J2704; J3490; J7030; J7060; J7120; S0164